=== PATIENT | male | born 1960 | race Caucasian/White ===

== ENCOUNTER 2018-11-16 14:35 | Emergency (ER) | payer OTHER, SELFPAY ==
[2018-11-16 14:44] VITALS: BP 125/70; PULSE 99; RESP 18; TEMP 37.5; O2SAT 97; BMI 34.7
--- NOTE | 2018-11-16 15:20 | DI.RAD.S_ITS ---
PROCEDURE: XR CHEST 2V INDICATIONS: cough x4 days hx of bronchitis. TECHNIQUE: 2 views of the chest were acquired. COMPARISON: None. FINDINGS: Surgical changes and devices: None. Lungs and pleura: No pleural effusions or pneumothorax. Lungs are clear. Mediastinum: Mediastinal contours are normal. Heart size is normal. Bones and chest wall: No suspicious bony abnormalities. Soft tissues appear unremarkable. IMPRESSION: No acute cardiopulmonary disease. Dictated by: Tiara Borrero M.D. on 11/16/2018 at 15:51 Approved by: Tiara Borrero M.D. on 11/16/2018 at 15:52
[2018-11-16] MEDS: predniSONE 20 MG TABLET 60 MG PO (16:55)
[2018-11-16] MEDS: ALBUTEROL 2.5 MG/3 ML NEB (ADULT) INH (16:56)
[2018-11-16 16:57] VITALS: PULSE 77; RESP 12; O2SAT 98
[2018-11-16 17:24] LABS: Influenza A and B by PCR Rapid Negative (Negative)
--- NOTE | 2018-11-16 17:26 | ED.URI ---
HPI - URI/Sore Throat <EREN BrowningBC - Last Filed: 11/16/18 18:11> General Chief Complaint: Upper Respiratory Symptoms Stated Complaint: BRONCHITIS Time Seen by Provider: 11/16/18 16:33 Source: patient Mode of arrival: ambulatory Limitations: no limitations History of Present Illness HPI Narrative: Patient is a 57-year-old male nonsmoker who presents with a chief complaint of cough since . Complains of fevers. Subjective fevers 101. Patient denies any nausea vomiting diarrhea. Patient denies any congestion. Patient and chest pain. He does complain of wheezing. Patient states that it started as a head cold and then move lower. He states he has albuterol and a preventative inhaler. He states he does not smoke, does not have a history of asthma COPD. He did used to see a fish frog or oyster farmer, but never had a pulm diagnosis. Related Data Home Medications Medication Instructions Recorded Confirmed aspirin 1 tab PO DAILY 11/16/18 11/16/18 empagliflozin [Jardiance] 1 tab PO DAILY 11/16/18 11/16/18 hydrochlorothiazide 1 tab PO DAILY 11/16/18 11/16/18 insulin aspart U-100 [Novolog 18 - 20 units SUBCUT BID 11/16/18 11/16/18 Flexpen U-100 Insulin] insulin glargine U-300 conc 80 units SUBCUT BID 11/16/18 11/16/18 [Toujeo SoloStar U-300 Insulin] loratadine 1 tab PO DAILY 11/16/18 11/16/18 simvastatin 1 tab PO DAILY 11/16/18 11/16/18 sitagliptin-metformin [Janumet XR] 2 tab PO QPM 11/16/18 11/16/18 Previous Rx's Medication Instructions Recorded benzonatate [Tessalon Perles] 100 mg PO QID PRN #30 cap 11/16/18 prednisone 50 mg PO DAILY #5 tab 11/16/18 Allergies Allergy/AdvReac Type Severity Reaction Status Date / Time No Known Drug Allergies Allergy Verified 11/16/18 14:47 Review of Systems <SILAS Browning - Last Filed: 11/16/18 18:11> Review of Systems GENERAL: Denies chills, fatigue, malaise, fever, sweats. HEENT: Denies sinus pain, ear pain, sore throat, difficulty swallowing, dizziness. RESPIRATORY: See HPI CARDIOVASCULAR: Denies chest pain, palpitations, orthopnea, edema, GASTROINTESTINAL: Denies nausea, vomiting, abdominal pain, diarrhea, constipation, melena. : Denies dysuria, frequency, incontinence, hematuria, urinary retention. MUSCULOSKELETAL: denies weakness, joint pain, or bony pain SKIN: Denies rash, skin lesions, or other NEUROLOGIC: Denies weakness, headache, numbness, change in speech, confusion, seizures, incoordination. PSYCHIATRIC: No concerning psychosocial issues. 12 point review of systems is negative except for those stated above Exam <ZENIA Browning-BC - Last Filed: 11/16/18 18:11> Narrative Exam Narrative: GENERAL: This is a well-nourished, well-developed patient, in no acute distress HEAD: Atraumatic. Normocephalic. No temporal or scalp tenderness. EYES: Pupils equal round and reactive. Extraocular motions intact. No scleral icterus. No injection or drainage. ENT: Nose without bleeding, purulent drainage or septal hematoma. Throat without erythema, tonsillar hypertrophy or exudate. Uvula midline. Airway patent. NECK: Trachea midline. No JVD or lymphadenopathy. Supple, nontender, no meningeal signs. CARDIOVASCULAR: Regular rate and rhythm without murmurs, gallops, or rubs. RESPIRATORY: Diffuse expiratory wheezes to auscultation. Breath sounds equal bilaterally. No rales, or rhonchi. No cough. No accessory muscle use. GASTROINTESTINAL: Abdomen soft, non-tender, nondistended. No hepato-splenomegaly, or palpable masses. No guarding. EXTREMITIES: No clubbing, cyanosis, or edema. No joint tenderness, effusion, or edema noted. BACK: Nontender without deformity or crepitance. No flank tenderness. NEURO: AOx3. SKIN: No rash or erythema. Initial Vital Signs Initial Vital Signs: Vital Signs Temperature 99.5 F 11/16/18 14:44 Pulse Rate 99 H 11/16/18 14:44 Respiratory Rate 18 11/16/18 14:44 Blood Pressure 125/70 11/16/18 14:44 Pulse Oximetry 97 11/16/18 14:44 <Martir Diaz DO - Last Filed: 11/16/18 18:59> Initial Vital Signs Initial Vital Signs: Vital Signs Temperature 99.5 F 11/16/18 14:44 Pulse Rate 99 H 11/16/18 14:44 Respiratory Rate 18 11/16/18 14:44 Blood Pressure 125/70 11/16/18 14:44 Pulse Oximetry 97 11/16/18 14:44 Course <BENITA BrowningP-BC - Last Filed: 11/16/18 18:11> Orders Ordered: ED Orders 11/16/18 15:20 Chest [XR chest 2V] Stat 11/16/18 16:55 Influenza A and B by PCR Rapid Stat Discontinued Medications Albuterol (Ventolin) 2.5 mg INH NOW ONE Stop: 11/16/18 16:47 Last Admin: 11/16/18 16:56 Dose: 2.5 mg Benzonatate (Tessalon Perles) 100 mg PO NOW ONE Stop: 11/16/18 17:51 Last Admin: 11/16/18 18:00 Dose: 100 mg Prednisone (Deltasone) 60 mg PO NOW ONE Stop: 11/16/18 16:47 Last Admin: 11/16/18 16:55 Dose: 60 mg Vital Signs - 8 hr 11/16/18 14:44 11/16/18 16:57 11/16/18 17:57 Temperature 99.5 F Pulse Rate 99 H 77 101 H Respiratory Rate 18 12 18 Blood Pressure 125/70 135/76 Pulse Oximetry 97 98 96 <Martir Diaz DO - Last Filed: 11/16/18 18:59> Orders Ordered: ED Orders 11/16/18 15:20 Chest [XR chest 2V] Stat 11/16/18 16:55 Influenza A and B by PCR Rapid Stat Discontinued Medications Albuterol (Ventolin) 2.5 mg INH NOW ONE Stop: 11/16/18 16:47 Last Admin: 11/16/18 16:56 Dose: 2.5 mg Benzonatate (Tessalon Perles) 100 mg PO NOW ONE Stop: 11/16/18 17:51 Last Admin: 11/16/18 18:00 Dose: 100 mg Prednisone (Deltasone) 60 mg PO NOW ONE Stop: 11/16/18 16:47 Last Admin: 11/16/18 16:55 Dose: 60 mg Vital Signs - 8 hr 11/16/18 14:44 11/16/18 16:57 11/16/18 17:57 Temperature 99.5 F Pulse Rate 99 H 77 101 H Respiratory Rate 18 12 18 Blood Pressure 125/70 135/76 Pulse Oximetry 97 98 96 MDM - URI/Sore Throat <EREN BrowningBC - Last Filed: 11/16/18 18:11> Lab Data Lab Results 11/16/18 Range/Units 16:55 Influenza A & B (PCR) Negative (Negative) Imaging Data Chest x-ray: Radiologist's impression: [address] [address] XRay Report Signed Patient: Chris Kaur MR#: [id number] : 1960 Acct:[id number] Age/Sex: 57 / M Date of Service: 11/16/18 Loc: ED Accession Number: [id number] Procedure: XR chest 2V Ordering Provider: Martir Diaz D.O. PROCEDURE: XR CHEST 2V INDICATIONS: cough x4 days hx of bronchitis. TECHNIQUE: 2 views of the chest were acquired. COMPARISON: None. FINDINGS: Surgical changes and devices: None. Lungs and pleura: No pleural effusions or pneumothorax. Lungs are clear. Mediastinum: Mediastinal contours are normal. Heart size is normal. Bones and chest wall: No suspicious bony abnormalities. Soft tissues appear unremarkable. IMPRESSION: No acute cardiopulmonary disease. Dictated by: Tiara Borrero M.D. on 11/16/2018 at 15:51 Approved by: Tiara Borrero M.D. on 11/16/2018 at 15:52 [facility] Narrative Medical decision making narrative: Patient is a 57-year-old male nonsmoker presents with a chief complaint of a cough. He had a negative chest x-ray, negative flu swab. He was given a nebulizer treatment the emergency department felt no relief from it. Given his wheezing, I am giving him a burst of steroids. I discussed at length with the patient that antibiotics are not indicated for a 4 day cough at this point time. We discussed a trial Juaquin Desai. I discussed return precautions the emergency department including shortness of breath, and encouraged follow-up with primary care provider. <Martir Diaz DO - Last Filed: 11/16/18 18:59> Lab Data Lab Results 11/16/18 Range/Units 16:55 Influenza A & B (PCR) Negative (Negative) Discharge Plan Departure Patient Disposition: Home Clinical Impression: Upper respiratory infection, Cough Discharge Date/Time: 11/16/18 18:05 Interventions: ED Discharge Assessment Last Done: 11/16/18 17:57 Instructions: DI for Cough -- Adult, DI for Viral Upper Respiratory Infection -- Adult Activity Restrictions/Additional Instructions: I have given you a burst of steroids as well as a trial of a cough medication. Please follow-up with primary care provider in a few days. Please monitor for high fevers, worsening shortness of breath or acute changes. Prescriptions: New prednisone 50 mg tablet 50 mg PO DAILY Qty: 5 RF: 0 benzonatate [Tessalon Perles] 100 mg capsule 100 mg PO QID PRN (Reason: cough) Qty: 30 RF: 0 No Action aspirin 81 mg tablet,delayed release (DR/EC) 1 tab PO DAILY RF: 0 simvastatin 40 mg tablet 1 tab PO DAILY RF: 0 hydrochlorothiazide 25 mg tablet 1 tab PO DAILY RF: 0 loratadine 10 mg tablet 1 tab PO DAILY RF: 0 insulin aspart U-100 [Novolog Flexpen U-100 Insulin] 100 unit/mL insulin pen 18 - 20 units subcut BID RF: 0 sitagliptin-metformin [Janumet XR] 50-1,000 mg tablet, ER multiphase 24 hr 2 tab PO QPM RF: 0 empagliflozin [Jardiance] 10 mg tablet 1 tab PO DAILY RF: 0 insulin glargine U-300 conc [Toujeo SoloStar U-300 Insulin] 300 unit/mL (1.5 mL) insulin pen 80 units subcut BID RF: 0 Referrals: Ngoc Silverman DO [Primary Care Provider] - <Martir Diaz DO - Last Filed: 11/16/18 18:59> Cosign ED Attending Andi Attestation: I was immediately available in the department for consultation. Documentation has been reviewed. I agree with assessment and plan.
--- NOTE | 2018-11-16 17:29 | ED_ITS ---
HPI - URI/Sore Throat <EREN BrowningBC - Last Filed: 11/16/18 18:11> General Chief Complaint: Upper Respiratory Symptoms Stated Complaint: BRONCHITIS Time Seen by Provider: 11/16/18 16:33 Source: patient Mode of arrival: ambulatory Limitations: no limitations History of Present Illness HPI Narrative: Patient is a 57-year-old male nonsmoker who presents with a chief complaint of cough since . Complains of fevers. Subjective fevers 101. Patient denies any nausea vomiting diarrhea. Patient denies any congestion. Patient and chest pain. He does complain of wheezing. Patient states that it started as a head cold and then move lower. He states he has albuterol and a preventative inhaler. He states he does not smoke, does not have a history of asthma COPD. He did used to see a product demonstrator, but never had a pulm diagnosis. Related Data Home Medications Medication Instructions Recorded Confirmed aspirin 1 tab PO DAILY 11/16/18 11/16/18 empagliflozin [Jardiance] 1 tab PO DAILY 11/16/18 11/16/18 hydrochlorothiazide 1 tab PO DAILY 11/16/18 11/16/18 insulin aspart U-100 [Novolog 18 - 20 units SUBCUT BID 11/16/18 11/16/18 Flexpen U-100 Insulin] insulin glargine U-300 conc 80 units SUBCUT BID 11/16/18 11/16/18 [Toujeo SoloStar U-300 Insulin] loratadine 1 tab PO DAILY 11/16/18 11/16/18 simvastatin 1 tab PO DAILY 11/16/18 11/16/18 sitagliptin-metformin [Janumet XR] 2 tab PO QPM 11/16/18 11/16/18 Previous Rx's Medication Instructions Recorded benzonatate [Tessalon Perles] 100 mg PO QID PRN #30 cap 11/16/18 prednisone 50 mg PO DAILY #5 tab 11/16/18 Allergies Allergy/AdvReac Type Severity Reaction Status Date / Time No Known Drug Allergies Allergy Verified 11/16/18 14:47 Review of Systems <SILAS Browning - Last Filed: 11/16/18 18:11> Review of Systems GENERAL: Denies chills, fatigue, malaise, fever, sweats. HEENT: Denies sinus pain, ear pain, sore throat, difficulty swallowing, dizziness. RESPIRATORY: See HPI CARDIOVASCULAR: Denies chest pain, palpitations, orthopnea, edema, GASTROINTESTINAL: Denies nausea, vomiting, abdominal pain, diarrhea, constipation, melena. : Denies dysuria, frequency, incontinence, hematuria, urinary retention. MUSCULOSKELETAL: denies weakness, joint pain, or bony pain SKIN: Denies rash, skin lesions, or other NEUROLOGIC: Denies weakness, headache, numbness, change in speech, confusion, seizures, incoordination. PSYCHIATRIC: No concerning psychosocial issues. 12 point review of systems is negative except for those stated above Exam <ZENIA Browning-BC - Last Filed: 11/16/18 18:11> Narrative Exam Narrative: GENERAL: This is a well-nourished, well-developed patient, in no acute distress HEAD: Atraumatic. Normocephalic. No temporal or scalp tenderness. EYES: Pupils equal round and reactive. Extraocular motions intact. No scleral icterus. No injection or drainage. ENT: Nose without bleeding, purulent drainage or septal hematoma. Throat without erythema, tonsillar hypertrophy or exudate. Uvula midline. Airway patent. NECK: Trachea midline. No JVD or lymphadenopathy. Supple, nontender, no meningeal signs. CARDIOVASCULAR: Regular rate and rhythm without murmurs, gallops, or rubs. RESPIRATORY: Diffuse expiratory wheezes to auscultation. Breath sounds equal bilaterally. No rales, or rhonchi. No cough. No accessory muscle use. GASTROINTESTINAL: Abdomen soft, non-tender, nondistended. No hepato-splenomegaly , or palpable masses. No guarding. EXTREMITIES: No clubbing, cyanosis, or edema. No joint tenderness, effusion, or edema noted. BACK: Nontender without deformity or crepitance. No flank tenderness. NEURO: AOx3. SKIN: No rash or erythema. Initial Vital Signs Initial Vital Signs: Vital Signs Temperature 99.5 F 11/16/18 14:44 Pulse Rate 99 H 11/16/18 14:44 Respiratory Rate 18 11/16/18 14:44 Blood Pressure 125/70 11/16/18 14:44 Pulse Oximetry 97 11/16/18 14:44 <Martir Diaz DO - Last Filed: 11/16/18 18:59> Initial Vital Signs Initial Vital Signs: Vital Signs Temperature 99.5 F 11/16/18 14:44 Pulse Rate 99 H 11/16/18 14:44 Respiratory Rate 18 11/16/18 14:44 Blood Pressure 125/70 11/16/18 14:44 Pulse Oximetry 97 11/16/18 14:44 Course <BENITA BrowningP-BC - Last Filed: 11/16/18 18:11> Orders Ordered: ED Orders 11/16/18 15:20 Chest [XR chest 2V] Stat 11/16/18 16:55 Influenza A and B by PCR Rapid Stat Discontinued Medications Albuterol (Ventolin) 2.5 mg INH NOW ONE Stop: 11/16/18 16:47 Last Admin: 11/16/18 16:56 Dose: 2.5 mg Benzonatate (Tessalon Perles) 100 mg PO NOW ONE Stop: 11/16/18 17:51 Last Admin: 11/16/18 18:00 Dose: 100 mg Prednisone (Deltasone) 60 mg PO NOW ONE Stop: 11/16/18 16:47 Last Admin: 11/16/18 16:55 Dose: 60 mg Vital Signs - 8 hr 11/16/18 14:44 11/16/18 16:57 11/16/18 17:57 Temperature 99.5 F Pulse Rate 99 H 77 101 H Respiratory Rate 18 12 18 Blood Pressure 125/70 135/76 Pulse Oximetry 97 98 96 <Martir Diaz DO - Last Filed: 11/16/18 18:59> Orders Ordered: ED Orders 11/16/18 15:20 Chest [XR chest 2V] Stat 11/16/18 16:55 Influenza A and B by PCR Rapid Stat Discontinued Medications Albuterol (Ventolin) 2.5 mg INH NOW ONE Stop: 11/16/18 16:47 Last Admin: 11/16/18 16:56 Dose: 2.5 mg Benzonatate (Tessalon Perles) 100 mg PO NOW ONE Stop: 11/16/18 17:51 Last Admin: 11/16/18 18:00 Dose: 100 mg Prednisone (Deltasone) 60 mg PO NOW ONE Stop: 11/16/18 16:47 Last Admin: 11/16/18 16:55 Dose: 60 mg Vital Signs - 8 hr 11/16/18 14:44 11/16/18 16:57 11/16/18 17:57 Temperature 99.5 F Pulse Rate 99 H 77 101 H Respiratory Rate 18 12 18 Blood Pressure 125/70 135/76 Pulse Oximetry 97 98 96 MDM - URI/Sore Throat <EREN BrowningBC - Last Filed: 11/16/18 18:11> Lab Data Lab Results 11/16/18 Range/Units 16:55 Influenza A & B (PCR) Negative (Negative) Imaging Data Chest x-ray: Radiologist's impression: [address] [address] XRay Report Signed Patient: Chris Kaur MR#: [id number] : 1960 Acct:[id number] Age/Sex: 57 / M Date of Service: 11/16/18 Loc: ED Accession Number: [id number] Procedure: XR chest 2V Ordering Provider: Martir Diaz D.O. PROCEDURE: XR CHEST 2V INDICATIONS: cough x4 days hx of bronchitis. TECHNIQUE: 2 views of the chest were acquired. COMPARISON: None. FINDINGS: Surgical changes and devices: None. Lungs and pleura: No pleural effusions or pneumothorax. Lungs are clear. Mediastinum: Mediastinal contours are normal. Heart size is normal. Bones and chest wall: No suspicious bony abnormalities. Soft tissues appear unremarkable. IMPRESSION: No acute cardiopulmonary disease. Dictated by: Tiara Borrero M.D. on 11/16/2018 at 15:51 Approved by: Tiara Borrero M.D. on 11/16/2018 at 15:52 [facility] Narrative Medical decision making narrative: Patient is a 57-year-old male nonsmoker presents with a chief complaint of a cough. He had a negative chest x-ray, negative flu swab. He was given a nebulizer treatment the emergency department felt no relief from it. Given his wheezing, I am giving him a burst of steroids. I discussed at length with the patient that antibiotics are not indicated for a 4 day cough at this point time. We discussed a trial Juaquin Desai. I discussed return precautions the emergency department including shortness of breath, and encouraged follow-up with primary care provider. <Martir Diaz DO - Last Filed: 11/16/18 18:59> Lab Data Lab Results 11/16/18 Range/Units 16:55 Influenza A & B (PCR) Negative (Negative) Discharge Plan Departure Patient Disposition: Home Clinical Impression: Upper respiratory infection, Cough Discharge Date/Time: 11/16/18 18:05 Interventions: ED Discharge Assessment Last Done: 11/16/18 17:57 Instructions: DI for Cough -- Adult, DI for Viral Upper Respiratory Infection - - Adult Activity Restrictions/Additional Instructions: I have given you a burst of steroids as well as a trial of a cough medication. Please follow-up with primary care provider in a few days. Please monitor for high fevers, worsening shortness of breath or acute changes. Prescriptions: New prednisone 50 mg tablet 50 mg PO DAILY Qty: 5 RF: 0 benzonatate [Tessalon Perles] 100 mg capsule 100 mg PO QID PRN (Reason: cough) Qty: 30 RF: 0 No Action aspirin 81 mg tablet,delayed release (DR/EC) 1 tab PO DAILY RF: 0 simvastatin 40 mg tablet 1 tab PO DAILY RF: 0 hydrochlorothiazide 25 mg tablet 1 tab PO DAILY RF: 0 loratadine 10 mg tablet 1 tab PO DAILY RF: 0 insulin aspart U-100 [Novolog Flexpen U-100 Insulin] 100 unit/mL insulin pen 18 - 20 units subcut BID RF: 0 sitagliptin-metformin [Janumet XR] 50-1,000 mg tablet, ER multiphase 24 hr 2 tab PO QPM RF: 0 empagliflozin [Jardiance] 10 mg tablet 1 tab PO DAILY RF: 0 insulin glargine U-300 conc [Toujeo SoloStar U-300 Insulin] 300 unit/mL (1.5 mL) insulin pen 80 units subcut BID RF: 0 Referrals: Ngoc Silverman DO [Primary Care Provider] - <Martir Diaz DO - Last Filed: 11/16/18 18:59> Cosign ED Attending Andi Attestation: I was immediately available in the department for consultation. Documentation has been reviewed. I agree with assessment and plan.
[2018-11-16 17:57] VITALS: BP 135/76; PULSE 101; RESP 18; O2SAT 96
[2018-11-16] MEDS: BENZONATATE 100 MG CAPSULE PO (18:00)
== END 2018-11-16 18:05 | disposition home or self-care (01) ==
PROVIDERS: Emergency Provider Nurse Practitioner Family; PCP Family Medicine
DX: J06.9 Acute upper respiratory infection, unspecified (principal); R05 Cough
CPT/HCPCS: 71046; 87400; 94640; 99282; 99284; J7613

== ENCOUNTER → 2020-05-26 07:08 | Outpatient (CLI) | payer OTHER, SELFPAY ==
--- NOTE | 2020-05-26 | DI.MRI.S_ITS ---
PROCEDURE: MR HEAD/BRAIN WO CON INDICATIONS: Cough,Chronic sphenoidal sinusitis TECHNIQUE: Noncontrast axial T1 spin echo, axial T2 fast spin echo, sagittal and axial FLAIR, coronal T2 fast spin echo, axial gradient echo, axial diffusion and ADC through the brain. COMPARISON: None. FINDINGS: Image quality: Excellent. CSF Spaces: Basal cisterns are patent. No extra-axial fluid collections. Ventricles are normal in size and shape. Brain: No intracranial masses or hemorrhage. Mata/white matter interface is normal. Brainstem appears normal. Diffusion-weighted images demonstrate no acute ischemic insult. No chronic ischemic insults. Normal intravascular flow voids are present. Skull and face: Calvarium has normal marrow signal. Orbits appear normal. Sinuses: Mild mucosal thickening within the left sphenoid sinus. Sinuses and mastoids are otherwise clear. IMPRESSION: 1. Negative evaluation of the brain. 2. No recent infarct. 3. Mild left sphenoid sinus mucosal disease. Dictated by: Rosi Andrews M.D. on 05/26/2020 at 9:21 Approved by: Rosi Andrews M.D. on 05/26/2020 at 9:25
== END ==
PROVIDERS: PCP Family Medicine; Referring Provider Otolaryngology; Visit Provider Otolaryngology
DX: R05 Cough (principal); J32.3 Chronic sphenoidal sinusitis
CPT/HCPCS: 70551

== ENCOUNTER → 2021-09-28 07:58 | Outpatient (CLI) | payer OTHER, SELFPAY ==
--- NOTE | 2021-09-28 | DI.NM.S_ITS ---
PROCEDURE: NM LUIS PERF SPECT REST & STR Rest and exercise myocardial perfusion SPECT with gated imaging and ejection fraction RADIOPHARMACEUTICAL: 23.1 mCi Tc-99m sestamibi IV at rest and 26.7 mCi Tc-99m sestamibi IV at peak exercise. A [id number] was performed. INDICATIONS: Shortness of breath TECHNIQUE: Radiopharmaceutical was injected at peak stress test, and also at rest. SPECT images were obtained. SPECT myocardial perfusion images were displayed in short axis, horizontal long axis, and vertical long axis views. Gated images were reviewed using Eosc[employer] software. COMPARISON: None. CARDIAC STRESS: A standard Shad treadmill exercise tolerance test was performed by the patient under the supervision of an attending staff. The patient exercised for 4 minutes and 22 seconds; 7.0 METS; functional aerobic impairment (SHERON) is +47%. Hemodynamic data: There is normal blood pressure and heart rate response to exercise stress. Patient achieved 92% of maximum predicted heart rate at peak exercise. Maximum blood pressure 270/80. Symptoms: Patient denied chest pain during exercise. EKG: The ECG demonstrated [address] segment depressions leads V4 through V6 in early recovery. FINDINGS: Raw data: There is good myocardial labeling by radiotracer. No significant motion artifacts. Fvmx-ev-wiqga ratio is 0.38 (normal is less than 0.38 for sestamibi tracer, and less than 0.50 for thallium tracer). Left ventricle function: Gated images demonstrate normal left ventricle wall thickening. No segmental wall motion abnormality. No transient ischemic dilation; TID is 0.91 (normal less than 1.3). The left ventricle resting end-diastolic volume is 123 mL. Left ventricle stress ejection fraction is 76%; normal values are above 45%. Myocardial perfusion: There is a small size, mild intensity mid anterior wall reversible defect that resolves with prone imaging. There is also a medium size, mild to moderate intensity reversible basal inferior wall defect that also resolves with prone imaging. IMPRESSION: 1. No definite exercise-induced ischemia on perfusion imaging as two reversible defects seen on supine stress imaging resolve with delayed prone imaging. 2. Abnormal stress ECG with ST segment depressions leads V4 through V6 noted in recovery. 3. Limited exercise capacity. 4. Hypertensive response to exercise. Dictated by: Hyacinth Cornell D.O. on 09/29/2021 at 15:42 Approved by: Hyacinth Cornell M.D. on 09/29/2021 at 15:48
--- NOTE | 2021-09-28 | DI.ECHO.S_ITS ---
[facility] +---------+ : : [address] : [address] : : : : [address] : : : : Phone: [phone]+ Echocardiogram Report + + :Name: BURTON MACKEY Study Date: 09/28/2021 Height: 74 in : :[facility] ReadingLocation: Weight: 290 lb : : Gender: Male BSA: 2.5 m2 : :: 1960 Age: 60 yrs BP: 167/78 mmHg: :Reason For Study: SHORTNESS OF BREATH : :Ordering Physician: LORRIE, : :DESIRAE Performed By: Mouna Santana : :Referring: DESIRAE ANDREW : + + Interpretation Summary Normal-sized left ventricle. The ejection fraction is estimated to be 65-70%. There are no focal wall motion abnormalities. Diastolic parameters suggest probable normal left ventricular diastolic function and normal filling pressures. The right ventricle is mildly dilated. The right ventricular systolic function is normal. No significant valvular pathology seen. The IVC is of normal diameter and collapses greater than 50% with a sniff. This suggests a low right atrial pressure of 3 mm Hg. Procedure: A two-dimensional transthoracic echocardiogram with color flow and Doppler was performed. The study quality was technically difficult. A contrast injection of Definity was performed to improve assessment of LV function. There is no prior echocardiogram noted for this patient. The patient was in sinus rhythm with heart rates between 77-91 bpm during the exam. Left Ventricle: The left ventricle is normal in size. Proximal septal thickening is noted. There is no echo evidence for significant left ventricular outflow tract obstruction. There is no thrombus. The ejection fraction is estimated to be 65-70%. There are no focal wall motion abnormalities. Diastolic parameters suggest probable normal left ventricular diastolic function and normal filling pressures. Right Ventricle: The right ventricle is mildly dilated. The right ventricular systolic function is normal. Atria: The left atrial size is normal. Right atrial size is normal. There is no Doppler evidence for an interatrial shunt. Mitral Valve: The mitral valve is normal in structure and function. There is trace mitral regurgitation. Aortic Valve: The aortic valve is trileaflet. The aortic valve opens well. There is no aortic valve stenosis. No aortic regurgitation is present. Tricuspid Valve: The tricuspid valve is normal in structure and function. There is trace tricuspid regurgitation. Pulmonary artery pressures cannot be estimated because of the lack of a measurable TR jet velocity. Pulmonic Valve: The pulmonic valve is not well visualized. There is trace pulmonic regurgitation. Great Vessels: The aortic root is normal size. The dimensions of the ascending aorta are normal. The IVC is of normal diameter and collapses greater than 50% with a sniff. This suggests a low right atrial pressure of 3 mm Hg. Pericardium/ Pleura There is no pericardial effusion. There is an anterior echo-free space consistent with a fat pad. There is no pleural effusion. MMode/2D Measurements & Calculations LVIDd: 4.0 cm LVOT diam: 2.1 cm LVIDs: 2.5 cm Ao root diam: 3.3 cm FS: 37.6 % asc Aorta Diam: 3.0 cm IVSd: 1.2 cm Ao Arch Diam (Prox Trans): 3.0 cm LVPWd: 0.88 cm LV anders. diameter/BSA (cm/m^2): 1.6 LV sys. diameter/BSA (cm/m^2): 0.98 LA A2 area: 22.2 cm2 RA long axis: 5.0 cm LA A4 area: 25.2 cm2 RA area: 18.4 cm2 LA length (vol): 6.0 cm RA vol: 57.5 ml LA vol: 78.9 ml RA : 22.6 ml/m2 LA vol index: 31.0 ml/m2 IVC diam: 2.0 cm RVD1 (basal): 4.3 cm TAPSE: 2.6 cm Doppler Measurements & Calculations Ao V2 max: 144.9 cm/sec LVOT Max Peterson: 114.6 cm/sec Ao V2 mean: 99.8 cm/sec LV V1 max P.3 mmHg Ao max P.4 mmHg LV V1 VTI: 21.7 cm Ao mean P.5 mmHg JORGE(I,D): 2.8 cm2 Ao V2 VTI: 27.6 cm JORGE(V,D): 2.8 cm2 sev ratio: 0.79 JORGE indexed to BSA (cm^2/m^2): 1.1 MV E max peterson: 108.5 cm/sec PA V2 max: 152.5 cm/sec MV A max peterson: 71.1 cm/sec PA V2 mean: 116.1 cm/sec MV E/A: 1.5 PA mean P.8 mmHg Med Peak E' Peterson: 12.5 cm/sec PA pr(Accel): 32.8 mmHg E/E' med: 8.6 Lat Peak E' Peterson: 10.9 cm/sec E/E' lat: 9.9 E/e' average: 9.3 MV dec time: 0.23 sec SV([facility]): 76.7 ml Reading Physician:03:33 PM
[2021-09-28 10:58] LABS: COVID19 -Nasal RAPID Negative (Negative)
== END ==
PROVIDERS: PCP Family Medicine; Referring Provider Internal Medicine Cardiovascular Disease; Visit Provider Internal Medicine Cardiovascular Disease
DX: R06.02 Shortness of breath (principal); R94.39 Abnormal result of other cardiovascular function study; Z20.822 Contact with and (suspected) exposure to COVID-19
CPT/HCPCS: 78452; 87635; 93017; A9502; C8929; Q9957

== ENCOUNTER 2022-08-31 21:57 | Emergency (ER) | payer OTHER, SELFPAY ==
[2022-08-31 22:12] VITALS: BP 139/64; PULSE 97; RESP 18; TEMP 36.7; O2SAT 97; BMI 37.2
--- NOTE | 2022-08-31 22:16 | DI.RAD.S_ITS ---
PROCEDURE: XR CHEST 2V INDICATIONS: think broken right lower rib from coughing TECHNIQUE: 2 views of the chest were acquired. COMPARISON: , CR, XR CHEST 2V, 11/16/2018, 15:23. FINDINGS: Surgical changes and devices: None. Lungs and pleura: There are low lung volumes with vascular crowding. There is suggestion of a small right pleural effusion. Mediastinum: Mediastinal contours are normal. Heart size is normal. Bones and chest wall: No suspicious bony abnormalities. Soft tissues appear unremarkable. IMPRESSION: 1. Low lung volumes with vascular crowding. 2. Suggestion of a small right pleural effusion. Dictated by: Sloan Dumont M.D. on 09/01/2022 at 0:10 Approved by: Sloan Dumont M.D. on 09/01/2022 at 0:12
--- NOTE | 2022-08-31 22:32 | ED_ITS ---
HPI - General Adult General Chief complaint: Abdominal Pain Stated complaint: Head cold, Broke rib coughing Time Seen by Provider: 08/31/22 22:31 Source: patient Mode of arrival: Ambulatory History of Present Illness HPI narrative: 61M nonsmoker with history of hypertension and recent diagnosis of upper respiratory infection is being treated by his primary care provider with antibiotics and largely feeling much better presents with a chief complaint of a sudden onset right-sided rib pain that started when he was coughing. He states that he felt a pop and now has pain when he takes a deep breath. He denies fever or chills. He states that overall his symptoms have greatly improved. He denies any shortness of breath. He is had no nausea, vomiting or diarrhea. He is not dizzy nor weak or lightheaded. Related Data Home Medications Medication Instructions Recorded Confirmed aspirin 81 mg tablet,delayed 1 tab PO DAILY 11/16/18 11/16/18 release empagliflozin 10 mg tablet 1 tab PO DAILY 11/16/18 11/16/18 hydrochlorothiazide 25 mg tablet 1 tab PO DAILY 11/16/18 11/16/18 insulin aspart U-100 100 unit/mL 18 - 20 units SUBCUT BID 11/16/18 11/16/18 (3 mL) subcutaneous pen insulin glargine U-300 conc 300 80 units SUBCUT BID 11/16/18 11/16/18 unit/mL (1.5 mL) subcutaneous pen loratadine 10 mg tablet 1 tab PO DAILY 11/16/18 11/16/18 simvastatin 40 mg tablet 1 tab PO DAILY 11/16/18 11/16/18 sitagliptin 50 mg-metformin ER 2 tab PO QPM 11/16/18 11/16/18 1,000 mg tablet,extended release 24h mp Previous Rx's Medication Instructions Recorded benzonatate 100 mg capsule 100 mg PO QID PRN cough #30 caps 11/16/18 (Juaquin Desai) prednisone 50 mg tablet 50 mg PO DAILY #5 tabs 11/16/18 Allergies Allergy/AdvReac Type Severity Reaction Status Date / Time No Known Drug Allergies Allergy Verified 08/31/22 22:16 Review of Systems Review of Systems Narrative: GENERAL: Denies chills, fatigue, malaise, fever, sweats. HEENT: Denies sinus pain, ear pain, sore throat, difficulty swallowing, dizziness. RESPIRATORY: Denies dyspnea, cough, wheezing, hemoptysis, sputum. CARDIOVASCULAR: See HPI GASTROINTESTINAL: Denies nausea, vomiting, abdominal pain, diarrhea, constipation, melena. : Denies dysuria, frequency, incontinence, hematuria, urinary retention. MUSCULOSKELETAL: denies weakness, joint pain, or bony pain SKIN: Denies rash, skin lesions, or other NEUROLOGIC: Denies weakness, headache, numbness, change in speech, confusion, seizures, incoordination. PSYCHIATRIC: No concerning psychosocial issues. 12 point review of systems is negative except for those stated above Patient History Social History Smoking Status: Never smoker Smoking Status: Never smoker alcohol intake frequency: 0-2 drinks per day Substance Use Type: does not use Exam Narrative Exam Narrative: GENERAL: [61] year old patient appears stated age. Well-developed patient, in mild distress. No increased work of breathing, no hypoxemia HEAD: Atraumatic. Normocephalic. EYES: Pupils equal round and reactive. Extraocular motions intact. No scleral icterus. No injection or drainage. ENT: Nose without bleeding, purulent drainage. Throat without erythema, tonsillar hypertrophy or exudate. Airway patent. NECK: Trachea midline. Non tender CARDIOVASCULAR: Regular rate and rhythm without murmurs, gallops, or rubs. No pain on palpation of ribs RESPIRATORY: Deep breath illicits cough which is clearly painful, decreased breath sounds in right base. No wheezing, rales or rhonchi GASTROINTESTINAL: Abdomen soft, non-tender, nondistended. EXTREMITIES: No edema or joint tenderness. BACK: Nontender without deformity or crepitance. No flank tenderness. NEURO: AOx3. SKIN: No rash or erythema of visible areas Initial Vital Signs Initial Vital Signs: Vital Signs Temperature 98.1 F 08/31/22 22:12 Pulse Rate 97 H 08/31/22 22:12 Respiratory Rate 18 08/31/22 22:12 Blood Pressure 139/64 08/31/22 22:12 Pulse Oximetry 97 08/31/22 22:12 Oxygen Delivery Method 08/31/22 22:12 Course Orders Ordered: ED Orders 08/31/22 22:16 XR chest 2V Stat Vital Signs Vital signs: Vital Signs - 8 hr 08/31/22 22:12 Temperature 98.1 F Pulse Rate 97 H Respiratory Rate 18 Blood Pressure 139/64 Pulse Oximetry 97 Oxygen Delivery Method Room Air Medical Decision Making Imaging Data Chest x-ray: Radiologist's Impression: [address] [address] XRay Report Signed Patient: Chris Kaur MR#: [id number] : 1960 Acct:[id number] Age/Sex: 61 / M Date of Service: 08/31/22 Loc: ED Accession Number: [id number] ?? Procedure: XR chest 2V Ordering Provider: Martir Diaz D.O. PROCEDURE:? XR CHEST 2V ? INDICATIONS:? think broken right lower rib from coughing ? TECHNIQUE:? 2 views of the chest were acquired.? ? COMPARISON:? [facility], CR, XR CHEST 2V, 11/16/2018, 15:23. ? FINDINGS:? ? Surgical changes and devices:? None.? ? Lungs and pleura:? There are low lung volumes with vascular crowding.? There is suggestion of a small right pleural effusion.? ? Mediastinum:? Mediastinal contours are normal.? Heart size is normal.? ? Bones and chest wall:? No suspicious bony abnormalities.? Soft tissues appear unremarkable.? ? IMPRESSION:? ? 1. Low lung volumes with vascular crowding. ? 2. Suggestion of a small right pleural effusion.? ? ? Dictated by: Sloan Dumont M.D. on 09/01/2022 at 0:10 ? ? Approved by: Sloan Dumont M.D. on 09/01/2022 at 0:12 ? MDM Narrative Medical decision making narrative: Patient with very reassuring history and physical exam. He is in no respiratory distress with stable vitals. Chest x-ray shows small pleural effusion but no evidence of pneumonia or rib fracture. We did discuss this is the likely source of his discomfort. He already has a follow-up appointment scheduled for Saturday. He understands the need to keep this appointment in the importance of following this effusion to ensure it clears up. He has been given return precautions and has had questions answered to his apparent satisfaction Discharge Plan Departure Patient Disposition: Home Clinical Impression: Right-sided chest pain, Pleural effusion Instructions: DI for Atypical Chest Pain Activity Restrictions/Additional Instructions: *You have been diagnosed with [right-sided chest pain. Your history and physical exam are reassuring and chest x-ray shows no rib fracture, pneumonia or collapsed lung. As we discussed there is a small amount of fluid outside of your lung called a pleural effusion but there is no need for any specific intervention for this right now.] *What to do: *Please continue to take your regular medications as directed. *Please follow up with your primary care provider next week as planned. As we discussed, even though your appointment as already scheduled please let them know ahead of time that you were seen in the emergency department, we will electronically transmitted a copy of today's note *Return to Emergency Department if you should have any new, worsening or concerning symptoms, such as [fever greater than 101 F, shaking chills, worsening pain, persistent vomiting or other bothersome symptoms] Prescriptions: No Action prednisone 50 mg tablet 50 mg PO DAILY Qty: 5 0RF benzonatate [Tessalon Perles] 100 mg capsule 100 mg PO QID PRN (Reason: cough) Qty: 30 0RF aspirin 81 mg tablet,delayed release (DR/EC) 1 tab PO DAILY simvastatin 40 mg tablet 1 tab PO DAILY hydrochlorothiazide 25 mg tablet 1 tab PO DAILY loratadine 10 mg tablet 1 tab PO DAILY insulin aspart U-100 [Novolog Flexpen U-100 Insulin] 100 unit/mL insulin pen 18 - 20 units subcut BID sitagliptin-metformin [Janumet XR] 50-1,000 mg tablet, ER multiphase 24 hr 2 tab PO QPM empagliflozin [Jardiance] 10 mg tablet 1 tab PO DAILY insulin glargine U-300 conc [Toujeo SoloStar U-300 Insulin] 300 unit/mL (1.5 mL) insulin pen 80 units subcut BID Referrals: Ngoc Silverman DO [Primary Care Provider] -
[2022-09-01 00:25] VITALS: BP 137/90; PULSE 94; O2SAT 97
== END 2022-09-01 00:42 | disposition home or self-care (01) ==
PROVIDERS: Emergency Provider Emergency Medicine; PCP Family Medicine
DX: R07.9 Chest pain, unspecified (principal); J90 Pleural effusion, not elsewhere classified
CPT/HCPCS: 71046; 99281; 99283

== ENCOUNTER → 2022-09-06 16:52 | Outpatient (CLI) | payer OTHER, SELFPAY ==
--- NOTE | 2022-09-06 16:56 | DI.MRI.S_ITS ---
PROCEDURE: MR FOOT LT WO/W CON INDICATIONS: PAIN TO LT. TOE TECHNIQUE: Noncontrast coronal T1 spin echo and STIR, sagittal T1 spin echo with fat saturation and STIR, axial T1 spin echo and T2 fast spin echo with fat saturation. After the administration of contrast, axial/sagittal/coronal T1 spin echo with fat saturation through the left midfoot and forefoot. COMPARISON: None. FINDINGS: Image quality: Excellent. Bones: There is marrow edema involving base and shaft of 1st metatarsal bone. Marrow edema involving 2nd metatarsal base and shaft is also seen. There is also marrow edema in adjacent medial cuneiform and middle cuneiform. Cortical irregularity along articular surfaces of 1st metatarsal base and adjacent medial cuneiform is also seen. Dorsal subluxation at 2nd MTP joint is noted. No discrete fracture line is seen. Marrow edema is also noted involving 2nd proximal phalanx without discrete fracture line. No gross bony erosive changes are seen in 2nd metatarsal shaft or 2nd proximal phalanx. Osteoarthritic changes are noted throughout midfoot and forefoot. No other area of abnormal marrow signal is seen. After IV contrast infusion, abnormal enhancement within above-mentioned area of marrow edema is noted. Soft tissues: There is significant soft tissue edema and swelling over dorsum of midfoot and forefoot. No definite ulceration is seen. No discrete drainable fluid collection. There is edema involving plantar foot muscles without discrete intramuscular fluid collection. Heterogeneous contrast enhancement at the area of soft tissue swelling is seen. Forefoot tendons show no full-thickness rupture. IMPRESSION: 1. Marked soft tissue swelling over dorsum of midfoot and forefoot suggestive of cellulitis. No discrete drainable abscess collection. 2. Marrow edema involving 1st and 2nd metatarsal shafts and adjacent medial and middle cuneiform with bony erosive changes involving 1st TMT joint. Marrow edema also noted involving 2nd proximal phalangeal shaft with dorsal subluxation/dislocation at 2nd MTP joint. No definite fracture line is seen. Finding is concerning for osteomyelitis and septic arthritis. Insufficiency fracture cannot be entirely excluded. Clinical correlation and follow-up is recommended. 3. No other area of marrow edema or abnormal enhancement. Osteoarthritic changes throughout midfoot and forefoot. Dictated by: Caden Newell M.D. on 09/07/2022 at 9:18 Approved by: Caden Newell M.D. on 09/07/2022 at 9:40
== END ==
PROVIDERS: PCP Family Medicine; Referring Provider Family Medicine; Visit Provider Family Medicine
DX: R93.89 Abnormal findings on diagnostic imaging of other specified body structures (principal); M79.675 Pain in left toe(s); M79.89 Other specified soft tissue disorders
CPT/HCPCS: 73720; A9579

== ENCOUNTER 2022-09-10 10:18 | Inpatient (IN) | payer OTHER, SELFPAY ==
[2022-09-10] VITALS (9 sets, daily range): BP systolic 120–160; BP diastolic 60–89; PULSE 75–97; RESP 16–20; TEMP 36.6–36.8; O2SAT 96–99; BMI 36.6
[2022-09-10 11:04] LABS: Add Manual Diff / Slide Review NO; Basophils Absolute Auto 100 /uL (0-100); Eosinophils Absolute Auto 700 /uL (0-450); Eosinophils Percent Auto 4.7 % (2-4); Hematocrit 45.7 % (41-53); Hemoglobin 15.4 g/dL (13.5-17.5); Lymphocytes Absolute Auto 2200 /uL (1100-4500); Lymphocytes Percent Auto 15.5 % (25-40); Mean Corpuscular HGB Conc 33.6 % (30-36); Mean Corpuscular Hemoglobin 29.7 PG (26-34); Mean Corpuscular Volume 88.4 fL (80-100); Monocytes Absolute Auto 1100 /uL (0-900); Monocytes Percent Auto 7.7 % (3-14); Neutrophils Absolute Auto 10300 /uL (1500-7000); Neutrophils Percent Auto 71.1 % (50-75); Platelet Count 326 X10^3/uL (150-400); Red Blood Cell Count 5.17 X10^6/uL (4.5-5.9); Red Cell Distribution Width 15.1 % (11.6-14.8); White Blood Cell Count 14.5 X10^3/uL (4.5-11.0)
[2022-09-10 11:25] LABS: Alanine Aminotransferase 56 IU/L (<50); Albumin 4.1 g/dL (3.5-5.0); Albumin Globulin Ratio 1.3 (1.0-2.8); Alkaline Phosphatase 74 U/L (38-126); Aspartate Aminotransferase 37 IU/L (17-59); BUN Creatinine Ratio 22.3 (6-22); Bilirubin Total 0.5 mg/dL (0.2-1.3); Blood Urea Nitrogen 23 mg/dL (9-20); C-Reactive Protein Quant 1.3 mg/dL (<1.0); Calcium 9.3 mg/dL (8.4-10.2); Carbon Dioxide 28 mmol/L (22-32); Chloride 95 mmol/L (98-107); Estimated Glomerular Filt Rate > 60 mL/min (>60); Globulin 3.2 g/dL (1.7-4.1); Glucose 215 mg/dL (70-100); HEMOLYSIS 22 (0-50); Potassium 4.2 mmol/L (3.4-5.1); Sodium 134 mmol/L (137-145); Total Protein 7.3 g/dL (6.3-8.2)
[2022-09-10 11:30] LABS: Erythrocyte Sedimentation Rate 34 MM/HR (0-15)
--- NOTE | 2022-09-10 11:39 | PC.NURSE ---
second set of blood cx drawn by phlebotomy/lab at 1133
[2022-09-10] MEDS: VANCOMYCIN 2,000 MG/400 ML PIGGYBACK 200 MG IV (11:40)
--- NOTE | 2022-09-10 12:28 | ED_ITS ---
HPI - Extremity Problem <Bettina Harp, [facility] - Last Filed: 09/10/22 14:55> General Chief complaint: Extremity Problem,Nontraumatic Stated complaint: seent by SAMSON LEVY infection lt foot big toe Time Seen by Provider: 09/10/22 10:38 History of Present Illness HPI Narrative: This is a 61-year-old gentleman with history of diabetes, hypertension, PETERSON on CPAP who presents to the emergency department after his primary care appointment with Maria Del Carmen palacio who sent patient in for concern for osteomyelitis of his left foot. Patient reports that he has been on oral antibiotics for the last 3 weeks, states he was on Augmentin starting 3 weeks ago and 12 days ago started on doxycycline as well. He states that he has mild sensation to pressure in the dorsum and plantar aspect of his foot and has not complained of any pain, states that he noticed his left 1st and 2nd toes were swollen and appeared to be bent at the tip and he had an x-ray completed as an outpatient ordered by his primary care provider and then later had a left foot MRI. This was completed the [facility]. On chart review his MRI shows marked soft tissue swelling over the dorsum of the midfoot and forefoot suggestive of cellulitis, no discrete drainable abscess collection, marrow edema involving the 1st and 2nd metatarsal shafts and adjacent medial and middle cuneiform with bony erosive changes involving the 1st TM T joint. Marrow edema also noted involving 2nd proximal phalangeal shaft with dorsal subluxation/dislocation at the 2nd MTP joint. No definite fracture line is seen. Finding is concerning for osteomyelitis and septic arthritis. No other area marrow edema or abnormal enhancement was visualized on MRI, osteoarthritic changes throughout midfoot and forefoot. Patient states that he has been fatigued, feeling tired the last few days, denies any pain of his lower extremity. Related Data Home Medications Medication Instructions Recorded Confirmed hydrochlorothiazide 25 mg tablet 1 tab PO DAILY 11/16/18 09/10/22 insulin aspart U-100 100 unit/mL 26 units SUBCUT BID 11/16/18 09/10/22 (3 mL) subcutaneous pen insulin glargine U-300 conc 300 80 units SUBCUT BID 11/16/18 09/10/22 unit/mL (1.5 mL) subcutaneous pen loratadine 10 mg tablet 1 tab PO DAILY 11/16/18 09/10/22 sitagliptin 50 mg-metformin ER 1 tab PO QPM 11/16/18 09/10/22 1,000 mg tablet,extended release 24h mp albuterol sulfate 90 mcg/actuation 1 inh inhalation BID 09/10/22 09/10/22 aerosol inhaler (ProAir HFA) amoxicillin 500 mg-potassium 1 tab PO BID 09/10/22 09/10/22 clavulanate 125 mg tablet atorvastatin 40 mg tablet 40 mg PO DAILY 09/10/22 09/10/22 codeine 10 mg-guaifenesin 100 mg/5 5 ml PO BEDTIME PRN Cough 09/10/22 09/10/22 mL oral liquid doxycycline hyclate 100 mg tablet 100 mg PO BID 09/10/22 09/10/22 fluticasone 500 mcg-salmeterol 50 1 ea inhalation BID 09/10/22 09/10/22 mcg/dose blistr powdr for inhalation (Advair Diskus) fluticasone propionate 50 1 spray intranasal BID 09/10/22 09/10/22 mcg/actuation nasal spray,suspension furosemide 20 mg tablet 20 mg PO DAILY 09/10/22 09/10/22 hydrocodone 5 mg-acetaminophen 325 1 tab PO BEDTIME PRN Pain (Scale 09/10/22 09/10/22 mg tablet Score 4-6) omeprazole 20 mg capsule,delayed 20 mg PO BID 09/10/22 09/10/22 release Previous Rx's Medication Instructions Recorded benzonatate 100 mg capsule 100 mg PO QID PRN cough #30 caps 11/16/18 (Juaquin Desai) Allergies Allergy/AdvReac Type Severity Reaction Status Date / Time No Known Drug Allergies Allergy Verified 09/10/22 10:35 <Payton Killian, - Last Filed: 09/10/22 19:28> History of Present Illness HPI Narrative: This is a 61-year-old gentleman with history of diabetes, hypertension, PETERSON on CPAP who presents to the emergency department after his primary care appointment with Maria Del Carmen palacio who sent patient in for concern for osteomyelitis of his left foot. Patient reports that he has been on oral antibiotics for the last 3 weeks, states he was on Augmentin starting 3 weeks ago and 12 days ago started on doxycycline as well. He states that he has mild sensation to pressure in the dorsum and plantar aspect of his foot and has not complained of any pain, states that he noticed his left 1st and 2nd toes were swollen and appeared to be bent at the tip and he had an x-ray completed as an outpatient ordered by his primary care provider and then later had a left foot MRI. This was completed the [facility]. On chart review his MRI shows marked soft tissue swelling over the dorsum of the midfoot and forefoot suggestive of cellulitis, no discrete drainable abscess collection, marrow edema involving the 1st and 2nd metatarsal shafts and adjacent medial and middle cuneiform with bony erosive changes involving the 1st TM T joint. Marrow edema also noted involving 2nd proximal phalangeal shaft with dorsal subluxation/dislocation at the 2nd MTP joint. No definite fracture line is seen. Finding is concerning for osteomyelitis and septic arthritis. No other area marrow edema or abnormal enhancement was visualized on MRI, osteoarth ritic changes throughout midfoot and forefoot. Patient states that he has been fatigued, feeling tired the last few days, denies any pain of his lower extremity. Review of Systems <JEAN CARLOS Staples - Last Filed: 09/10/22 14:55> Review of Systems Narrative: Review of systems is negative for acute abnormalities unless otherwise noted in HPI Patient History <JEAN CARLOS Staples - Last Filed: 09/10/22 14:55> Social History household members: family Smoking Status: Never smoker alcohol intake: current Smoking Status: Never smoker alcohol intake frequency: 0-2 drinks per day Substance Use Type: does not use Exam <JEAN CARLOS Staples - Last Filed: 09/10/22 14:55> Narrative Exam Narrative: Reviewed vitals signs and nursing notes. General: cooperative, comfortable, in no acute distress, well groomed, overweight, HEENT: symmetrical facial expressions, moist mucous membranes Cardiovascular: regular rate and rhythm, no peripheral edema, warm extremities Respiratory: normal effort, occasional phlegm producing cough, states it is better than previously, able to speak in complete sentences, without wheezing, stridor, or abnormal breath sounds. No retractions or tachypnea. GI: abdomen soft, protuberant, nontender to palpation, nondistended, without masses, rebound tenderness or exquisite tenderness with exam. MSK: moves all extremities, neurovascularly intact, no weakness, normal tone, erythema and edema notable to left 1st 3 toes at the distal aspect, a blister verses callus is notable on the plantar aspect of his forefoot approximately 2 cm x 4 cm with a brown pigment in the middle. No surrounding erythema, no open wound or drainage, flexion of great toes is intact Skin: brisk capillary refill, without pallor, drainage, or wound, erythema present to the distal aspect of his 1st 3 toes on the left Neuro: normal speech and cognition, A&O x3, ambulatory, clear speech Psych: mental status is grossly normal, congruent mood, normal affect, pleasant and cooperative Initial Vital Signs Initial Vital Signs: Vital Signs Temperature 98.1 F 09/10/22 10:33 Pulse Rate 97 H 09/10/22 10:33 Respiratory Rate 16 09/10/22 10:33 Blood Pressure 157/79 H 09/10/22 10:33 Pulse Oximetry 97 09/10/22 10:33 Oxygen Delivery Method 09/10/22 10:33 <Payton Killian DO - Last Filed: 09/10/22 19:28> Initial Vital Signs Initial Vital Signs: Vital Signs Temperature 98.1 F 09/10/22 10:33 Pulse Rate 97 H 09/10/22 10:33 Respiratory Rate 16 09/10/22 10:33 Blood Pressure 157/79 H 09/10/22 10:33 Pulse Oximetry 97 09/10/22 10:33 Oxygen Delivery Method 09/10/22 10:33 Course <JEAN CARLOS Staples - Last Filed: 09/10/22 14:55> Orders Ordered: ED Orders 09/10/22 10:41 Hemoglobin A1C% w Est Avg Glu Stat Uric Acid Stat 09/10/22 10:52 Blood Culture Stat CBC Auto Diff [Complete Blood Count AUTO DIFF] Stat CMP [Comprehensive Metabolic Panel] Stat CRP [C-Reactive Protein Quant] Stat ESR [Erythrocyte Sedimentation Rate] Stat 09/10/22 12:31 COVID19 -Nasal RAPID/Pre-Proc Stat 09/10/22 12:58 Chest [XR chest 2V] Stat 09/10/22 13:07 XR foot LT min 3V Stat 09/10/22 14:23 CT angio abd aorta runoff Urgent 09/11/22 05:00 Basic Metabolic Panel Routine Complete Blood Count AUTO DIFF Routine Acetaminophen (Acetaminophen 325 Mg Tablet) 650 mg PO Q6HR PRN PRN Reason: Fever/Mild Pain (1-3) Enoxaparin Sodium (Enoxaparin 40 Mg/0.4 Ml Syringe) 40 mg SUBCUT DAILY [facility] Ceftriaxone Sodium 2,000 mg/ (Sodium Chloride) 100 mls @ 200 mls/hr IV Q24H [facility] Last Admin: 09/10/22 17:04 Dose: 200 mls/hr Documented By: EMILY Vancomycin HCl (Vancomycin) 1,250 mg in 250 mls @ 250 mls/hr IV Q12H [facility] Ondansetron HCl (Ondansetron 4 Mg/2 Ml Inj) 4 mg IV Q8HR PRN PRN Reason: Nausea And Vomiting Vancomycin HCl (Vancomycin Trough) 1 request [facility] [id number] [facility] Stop: 09/11/22 23:31 Discontinued Medications Vancomycin HCl/Dextrose (Vancomycin) 2,000 mg in 400 mls @ 200 mls/hr IV NOW ONE Stop: 09/10/22 12:39 Last Infusion: 09/10/22 13:49 Dose: 0 mls/hr Documented By: Admin: 09/10/22 11:40 Dose: 200 mls/hr Documented By: GERRY Lactated Ringer's (Lactated Ringers) 500 mls @ 1,000 mls/hr IV BOLUS ONE Stop: 09/10/22 12:49 Last Infusion: 09/10/22 13:23 Dose: 0 mls/hr Documented By: Admin: 09/10/22 12:33 Dose: 1,000 mls/hr Documented By: GERRY Consultations Consultation #1: Consultation with Dr. Santana who is on-call for Orthopedics regarding patient's presentation, history, medication regimen and failure on oral antibiotics needing IV antibiotics for resolution. She agrees that patient should be kept in the hospital, will be admitted to Medicine, she understands that he has an MRI and will review. She was sent photos of patient's plantar, dorsum, and lower extremity of his left foot. Time: 12:29 Consultation #2: Hospitalist was phone, he was admitting another patient, we will retry, patient's vancomycin is infusing, ordered lactated Ringer's and repeat chest x- ray as patient had a chest cold recently and still has a mildly productive cough. Time: 12:45 Consultation #3: Dr. Biggs accepts patient for admission Vital Signs Vital signs: Vital Signs - 8 hr 09/10/22 11:43 09/10/22 12:16 09/10/22 13:17 Temperature 98 F Pulse Rate 87 87 75 Respiratory Rate 18 18 18 Blood Pressure 130/89 123/68 120/68 Pulse Oximetry 99 99 98 Oxygen Delivery Method Room Air 09/10/22 13:49 Temperature Pulse Rate 90 Respiratory Rate 18 Blood Pressure 130/72 Pulse Oximetry 96 Oxygen Delivery Method Room Air <Payton Killian, DO - Last Filed: 09/10/22 19:28> Orders Ordered: ED Orders 09/10/22 10:41 Hemoglobin A1C% w Est Avg Glu Stat Uric Acid Stat 09/10/22 10:52 Blood Culture Stat CBC Auto Diff [Complete Blood Count AUTO DIFF] Stat CMP [Comprehensive Metabolic Panel] Stat CRP [C-Reactive Protein Quant] Stat ESR [Erythrocyte Sedimentation Rate] Stat 09/10/22 12:31 COVID19 -Nasal RAPID/Pre-Proc Stat 09/10/22 12:58 Chest [XR chest 2V] Stat 09/10/22 13:07 XR foot LT min 3V Stat 09/10/22 14:23 CT angio abd aorta runoff Urgent 09/11/22 05:00 Basic Metabolic Panel Routine Complete Blood Count AUTO DIFF Routine Acetaminophen (Acetaminophen 325 Mg Tablet) 650 mg PO Q6HR PRN PRN Reason: Fever/Mild Pain (1-3) Enoxaparin Sodium (Enoxaparin 40 Mg/0.4 Ml Syringe) 40 mg SUBCUT DAILY [facility] Ceftriaxone Sodium 2,000 mg/ (Sodium Chloride) 100 mls @ 200 mls/hr IV Q24H [facility] Last Admin: 09/10/22 17:04 Dose: 200 mls/hr Documented By: LDV Vancomycin HCl (Vancomycin) 1,250 mg in 250 mls @ 250 mls/hr IV Q12H [facility] Ondansetron HCl (Ondansetron 4 Mg/2 Ml Inj) 4 mg IV Q8HR PRN PRN Reason: Nausea And Vomiting Vancomycin HCl (Vancomycin Trough) 1 request [facility] [id number] [facility] Stop: 09/11/22 23:31 Discontinued Medications Vancomycin HCl/Dextrose (Vancomycin) 2,000 mg in 400 mls @ 200 mls/hr IV NOW ONE Stop: 09/10/22 12:39 Last Infusion: 09/10/22 13:49 Dose: 0 mls/hr Documented By: Admin: 09/10/22 11:40 Dose: 200 mls/hr Documented By: GERRY Lactated Ringer's (Lactated Ringers) 500 mls @ 1,000 mls/hr IV BOLUS ONE Stop: 09/10/22 12:49 Last Infusion: 09/10/22 13:23 Dose: 0 mls/hr Documented By: Admin: 09/10/22 12:33 Dose: 1,000 mls/hr Documented By: GERRY Vital Signs Vital signs: Vital Signs - 8 hr 09/10/22 11:43 09/10/22 12:16 09/10/22 13:17 Temperature 98 F Pulse Rate 87 87 75 Respiratory Rate 18 18 18 Blood Pressure 130/89 123/68 120/68 Pulse Oximetry 99 99 98 Oxygen Delivery Method Room Air 09/10/22 13:49 Temperature Pulse Rate 90 Respiratory Rate 18 Blood Pressure 130/72 Pulse Oximetry 96 Oxygen Delivery Method Room Air MDM - Extremity (Nontraumatic) <JEAN CARLOS Staples - Last Filed: 09/10/22 14:55> Lab Data Result diagrams: 09/10/22 10:52 09/10/22 10:52 Labs: Lab Results 09/10/22 09/10/22 09/10/22 Range/Units 10:41 10:41 10:52 WBC 14.5 H (4.5-11.0) X10^3/uL RBC 5.17 (4.5-5.9) X10^6/uL Hgb 15.4 (13.5-17.5) g/dL Hct 45.7 (41-53) % MCV 88.4 (80-100) fL MCH 29.7 (26-34) PG MCHC 33.6 (30-36) % RDW 15.1 H (11.6-14.8) % Plt Count 326 (150-400) X10^3/uL Neut % (Auto) 71.1 (50-75) % Lymph % (Auto) 15.5 L (25-40) % [place] % (Auto) 7.7 (3-14) % Eos % (Auto) 4.7 H (2-4) % Baso % (Auto) 1.0 (0-2) % Neut # (Auto) 63404 H (9017-0807) /uL Lymph # (Auto) 2200 (4470-5029) /uL [place] # (Auto) 1100 H (0-900) /uL Eos # (Auto) 700 H (0-450) /uL Baso # (Auto) 100 (0-100) /uL ESR 34 H (0-15) MM/HR Sodium (137-145) mmol/L Potassium (3.4-5.1) mmol/L Chloride (98-107) mmol/L Carbon Dioxide (22-32) mmol/L BUN (9-20) mg/dL Creatinine (0.66-1.25) mg/dL Estimated GFR (>60) mL/min BUN/Creatinine Ratio (6-22) Glucose (70-100) mg/dL Hemoglobin A1c 8.7 H (4.0-6.0) % Uric Acid 6.7 (3.5-8.5) mg/dL Calcium (8.4-10.2) mg/dL Total Bilirubin (0.2-1.3) mg/dL AST (17-59) IU/L ALT (<50) IU/L Alkaline Phosphatase (38-126) U/L C-Reactive Protein (<1.0) mg/dL Total Protein (6.3-8.2) g/dL Albumin (3.5-5.0) g/dL Globulin (1.7-4.1) g/dL Albumin/Globulin Ratio (1.0-2.8) SARS-CoV-2 (PCR) (Negative) 09/10/22 09/10/22 Range/Units 10:52 12:31 WBC (4.5-11.0) X10^3/uL RBC (4.5-5.9) X10^6/uL Hgb (13.5-17.5) g/dL Hct (41-53) % MCV (80-100) fL MCH (26-34) PG MCHC (30-36) % RDW (11.6-14.8) % Plt Count (150-400) X10^3/uL Neut % (Auto) (50-75) % Lymph % (Auto) (25-40) % [place] % (Auto) (3-14) % Eos % (Auto) (2-4) % Baso % (Auto) (0-2) % Neut # (Auto) (9246-3729) /uL Lymph # (Auto) (2047-8782) /uL [place] # (Auto) (0-900) /uL Eos # (Auto) (0-450) /uL Baso # (Auto) (0-100) /uL ESR (0-15) MM/HR Sodium 134 L (137-145) mmol/L Potassium 4.2 (3.4-5.1) mmol/L Chloride 95 L (98-107) mmol/L Carbon Dioxide 28 (22-32) mmol/L BUN 23 H (9-20) mg/dL Creatinine 1.03 (0.66-1.25) mg/dL Estimated GFR > 60 (>60) mL/min BUN/Creatinine Ratio 22.3 H (6-22) Glucose 215 H (70-100) mg/dL Hemoglobin A1c (4.0-6.0) % Uric Acid (3.5-8.5) mg/dL Calcium 9.3 (8.4-10.2) mg/dL Total Bilirubin 0.5 (0.2-1.3) mg/dL AST 37 (17-59) IU/L ALT 56 H (<50) IU/L Alkaline Phosphatase 74 (38-126) U/L C-Reactive Protein 1.3 H (<1.0) mg/dL Total Protein 7.3 (6.3-8.2) g/dL Albumin 4.1 (3.5-5.0) g/dL Globulin 3.2 (1.7-4.1) g/dL Albumin/Globulin Ratio 1.3 (1.0-2.8) SARS-CoV-2 (PCR) Negative (Negative) Imaging Data Extremity x-ray #1: Radiologist's Impression: PROCEDURE:? XR FOOT LT MIN 3V ? INDICATIONS:? osteomyelitis vs cellulitis ? TECHNIQUE:? 3 views of the foot were acquired.? ? COMPARISON:? [facility], MR, FOOT LT WO/W CON, 09/06/2022, 17:14. ? FINDINGS:? ? Bones:? Joint space loss and periarticular lucency present at the 1st TMT joint.? There is mild adjacent periosteal reaction.? No acute displcaed fracture visualized. ? Soft tissues:? No tibiotalar joint effusion.? Achilles tendon appears normal.? ? ? IMPRESSION:? Joint space loss and periarticular lucency present at the 1st TMT joint could represent osteomyelitis and/or septic arthritis as per recent MRI. ? ? Dictated by: Matthew Damon M.D. on 09/10/2022 at 14:13 ? ? Approved by: Matthew Damon M.D. on 09/10/2022 at 14:23 ? Chest x-ray: Radiologist's Impression: PROCEDURE:? XR CHEST 2V ? INDICATIONS:? coughing after trauma ? TECHNIQUE:? 2 views of the chest were acquired.? ? COMPARISON:? [facility], CR, XR CHEST 2V, 08/31/2022, 22:17.? [facility], CR, XR CHEST 2V, 11/16/2018, 15:23. ? FINDINGS:? ? Surgical changes and devices:? None.? ? Lungs and pleura:? Lungs are clear.? No pleural effusions or pneumothorax.? ? Mediastinum:? Mediastinal contours are normal.? Heart size is normal.? ? Bones and chest wall:? No suspicious bony abnormalities.? Soft tissues appear unremarkable.? ? IMPRESSION:? No acute cardiopulmonary abnormality. ? ? Dictated by: Matthew Damon M.D. on 09/10/2022 at 14:23 ? ? Approved by: Matthew Damon M.D. on 09/10/2022 at 14:26 ? foot mri: Radiologist's Impression: PROCEDURE:? MR FOOT LT WO/W CON ? INDICATIONS:? PAIN TO LT. TOE ? TECHNIQUE:? Noncontrast coronal T1 spin echo and STIR, sagittal T1 spin echo with fat saturation and STIR, axial T1 spin echo and T2 fast spin echo with fat saturation.? After the administration of contrast, axial/sagittal/coronal T1 spin echo with fat saturation through the left midfoot and forefoot.? ? COMPARISON:? None. ? FINDINGS:? Image quality:? Excellent.? ? Bones:? There is marrow edema involving base and shaft of 1st metatarsal bone.? Marrow edema involving 2nd metatarsal base and shaft is also seen.? There is also marrow edema in adjacent medial cuneiform and middle cuneiform.? Cortical irregularity along articular surfaces of 1st metatarsal base and adjacent medial cuneiform is also seen.? Dorsal subluxation at 2nd MTP joint is noted.? No discrete fracture line is seen.? Marrow edema is also noted involving 2nd proximal phalanx without discrete fracture line.? No gross bony erosive changes are seen in 2nd metatarsal shaft or 2nd proximal phalanx.? Osteoarthritic changes are noted throughout midfoot and forefoot.? No other area of abnormal marrow signal is seen.? After IV contrast infusion, abnormal enhancement within above-mentioned area of marrow edema is noted. ? Soft tissues:? There is significant soft tissue edema and swelling over dorsum of midfoot and forefoot.? No definite ulceration is seen.? No discrete drainable fluid collection.? There is edema involving plantar foot muscles without discrete intramuscular fluid collection.? Heterogeneous contrast enhancement at the area of soft tissue swelling is seen.? Forefoot tendons show no full-thickness rupture. ? IMPRESSION:? 1. Marked soft tissue swelling over dorsum of midfoot and forefoot suggestive of cellulitis.? No discrete drainable abscess collection. 2. Marrow edema involving 1st and 2nd metatarsal shafts and adjacent medial and middle cuneiform with bony erosive changes involving 1st TMT joint.? Marrow edema also noted involving 2nd proximal phalangeal shaft with dorsal subluxation/dislocation at 2nd MTP joint.? No definite fracture line is seen.? Finding is concerning for osteomyelitis and septic arthritis.? Insufficiency fracture cannot be entirely excluded.? Clinical correlation and follow-up is recommended. 3.? No other area of marrow edema or abnormal enhancement.? Osteoarthritic changes throughout midfoot and forefoot. ? ? Dictated by: Caden Newell M.D. on 09/07/2022 at 9:18 ? ? Approved by: Caden Newell M.D. on 09/07/2022 at 9:40 ? MDM Narrative Medical decision making narrative: This is a 61-year-old male with history of diabetes, PETERSON on CPAP at night, gout, high blood pressure who presents to the emergency department complaining of concern for osteomyelitis of his left foot with a MRI of his left foot showing marked soft tissue swelling over the dorsum of the midfoot and forefoot suggestive of cellulitis, no discrete drainable abscess collection. Marrow edema involving the 1st and 2nd metatarsal shafts an adjacent medial and middle cuneiform with bony erosive changes involving the 1st TMT joint. Marrow edema is also noted involving the 2nd proximal phalangeal shaft with dorsal subluxation/dislocation at the 2nd MTP joint. No definite fracture line is seen. Finding is concerning for osteomyelitis and septic arthritis with insufficiency fracture not entirely excluded. Patient has been on Augmentin for 3 weeks, doxycycline for the last 2 weeks, and has not had any improvement. Agreement between hospitalist, Dr. Glaser and patient for admission for IV a ntibiotics with not responding to treatment at home. Patient had an upper respiratory infection recently. He continued to have a productive cough, chest x-ray does not show any acute cardiopulmonary abnormality today. Patient has a leukocytosis of 14.5, without anemia, no thrombocytopenia, ESR is elevated at 34, no significant electrolyte abnormalities, glucose is 215, hemoglobin A1c is 8.7, his CRP is elevated at 1.3, COVID PCR is negative. Uric acid is 6.7. Differential diagnoses include osteomyelitis versus pathologic fracture, cellulitis, cellulitis with abscess, septic arthritis, gouty arthritis with erosive changes, Charcot Melva tooth, diabetic ulcer. <Payton Killian, DO - Last Filed: 09/10/22 19:28> Lab Data Labs: Lab Results 09/10/22 09/10/22 09/10/22 Range/Units 10:41 10:41 10:52 WBC 14.5 H (4.5-11.0) X10^3/uL RBC 5.17 (4.5-5.9) X10^6/uL Hgb 15.4 (13.5-17.5) g/dL Hct 45.7 (41-53) % MCV 88.4 (80-100) fL MCH 29.7 (26-34) PG MCHC 33.6 (30-36) % RDW 15.1 H (11.6-14.8) % Plt Count 326 (150-400) X10^3/uL Neut % (Auto) 71.1 (50-75) % Lymph % (Auto) 15.5 L (25-40) % [place] % (Auto) 7.7 (3-14) % Eos % (Auto) 4.7 H (2-4) % Baso % (Auto) 1.0 (0-2) % Neut # (Auto) 49065 H (5235-4367) /uL Lymph # (Auto) 2200 (5788-6099) /uL [place] # (Auto) 1100 H (0-900) /uL Eos # (Auto) 700 H (0-450) /uL Baso # (Auto) 100 (0-100) /uL ESR 34 H (0-15) MM/HR Sodium (137-145) mmol/L Potassium (3.4-5.1) mmol/L Chloride (98-107) mmol/L Carbon Dioxide (22-32) mmol/L BUN (9-20) mg/dL Creatinine (0.66-1.25) mg/dL Estimated GFR (>60) mL/min BUN/Creatinine Ratio (6-22) Glucose (70-100) mg/dL Hemoglobin A1c 8.7 H (4.0-6.0) % Uric Acid 6.7 (3.5-8.5) mg/dL Calcium (8.4-10.2) mg/dL Total Bilirubin (0.2-1.3) mg/dL AST (17-59) IU/L ALT (<50) IU/L Alkaline Phosphatase (38-126) U/L C-Reactive Protein (<1.0) mg/dL Total Protein (6.3-8.2) g/dL Albumin (3.5-5.0) g/dL Globulin (1.7-4.1) g/dL Albumin/Globulin Ratio (1.0-2.8) SARS-CoV-2 (PCR) (Negative) 09/10/22 09/10/22 Range/Units 10:52 12:31 WBC (4.5-11.0) X10^3/uL RBC (4.5-5.9) X10^6/uL Hgb (13.5-17.5) g/dL Hct (41-53) % MCV (80-100) fL MCH (26-34) PG MCHC (30-36) % RDW (11.6-14.8) % Plt Count (150-400) X10^3/uL Neut % (Auto) (50-75) % Lymph % (Auto) (25-40) % [place] % (Auto) (3-14) % Eos % (Auto) (2-4) % Baso % (Auto) (0-2) % Neut # (Auto) (0030-1318) /uL Lymph # (Auto) (3640-5661) /uL [place] # (Auto) (0-900) /uL Eos # (Auto) (0-450) /uL Baso # (Auto) (0-100) /uL ESR (0-15) MM/HR Sodium 134 L (137-145) mmol/L Potassium 4.2 (3.4-5.1) mmol/L Chloride 95 L (98-107) mmol/L Carbon Dioxide 28 (22-32) mmol/L BUN 23 H (9-20) mg/dL Creatinine 1.03 (0.66-1.25) mg/dL Estimated GFR > 60 (>60) mL/min BUN/Creatinine Ratio 22.3 H (6-22) Glucose 215 H (70-100) mg/dL Hemoglobin A1c (4.0-6.0) % Uric Acid (3.5-8.5) mg/dL Calcium 9.3 (8.4-10.2) mg/dL Total Bilirubin 0.5 (0.2-1.3) mg/dL AST 37 (17-59) IU/L ALT 56 H (<50) IU/L Alkaline Phosphatase 74 (38-126) U/L C-Reactive Protein 1.3 H (<1.0) mg/dL Total Protein 7.3 (6.3-8.2) g/dL Albumin 4.1 (3.5-5.0) g/dL Globulin 3.2 (1.7-4.1) g/dL Albumin/Globulin Ratio 1.3 (1.0-2.8) SARS-CoV-2 (PCR) Negative (Negative) Discharge Plan Departure Patient Disposition: Admitted As Inpatient Clinical Impression: History of diabetes mellitus Osteomyelitis Qualifiers: Osteomyelitis type: unspecified type Osteomyelitis location: foot Laterality: left Qualified Code(s): M86.9 - Osteomyelitis, unspecified Cellulitis Qualifiers: Site of cellulitis: extremity Site of cellulitis of extremity: toe Laterality: left Qualified Code(s): L03.032 - Cellulitis of left toe Admit Date/Time: 09/10/22 14:26 Admit Provider: Papo Biggs <Payton Killian DO - Last Filed: 09/10/22 19:28> Cosign ED Attending Cosignature Attestation: I was immediately available in the department for consultation. Documentation has been reviewed. Case was discussed. Imaging was reviewed. Agree with plan and had initiated antibiotics
[2022-09-10] MEDS: LACTATED RINGERS 500 ML 1000 ML IV (12:33)
--- NOTE | 2022-09-10 12:58 | DI.RAD.S_ITS ---
PROCEDURE: XR CHEST 2V INDICATIONS: coughing after trauma TECHNIQUE: 2 views of the chest were acquired. COMPARISON: [facility], , XR CHEST 2V, 08/31/2022, 22:17. [facility], ZUNILDA, XR CHEST 2V, 11/16/2018, 15:23. FINDINGS: Surgical changes and devices: None. Lungs and pleura: Lungs are clear. No pleural effusions or pneumothorax. Mediastinum: Mediastinal contours are normal. Heart size is normal. Bones and chest wall: No suspicious bony abnormalities. Soft tissues appear unremarkable. IMPRESSION: No acute cardiopulmonary abnormality. Dictated by: Matthew Damon M.D. on 09/10/2022 at 14:23 Approved by: Matthew Damon M.D. on 09/10/2022 at 14:26
[2022-09-10 13:00] LABS: COVID19 -Nasal RAPID Negative (Negative)
--- NOTE | 2022-09-10 13:07 | DI.RAD.S_ITS ---
PROCEDURE: XR FOOT LT MIN 3V INDICATIONS: osteomyelitis vs cellulitis TECHNIQUE: 3 views of the foot were acquired. COMPARISON: [facility], MR, MR FOOT LT WO/W CON, 09/06/2022, 17:14. FINDINGS: Bones: Joint space loss and periarticular lucency present at the 1st TMT joint. There is mild adjacent periosteal reaction. No acute displcaed fracture visualized. Soft tissues: No tibiotalar joint effusion. Achilles tendon appears normal. IMPRESSION: Joint space loss and periarticular lucency present at the 1st TMT joint could represent osteomyelitis and/or septic arthritis as per recent MRI. Dictated by: Matthew Damno M.D. on 09/10/2022 at 14:13 Approved by: Matthew Damon M.D. on 09/10/2022 at 14:23
--- NOTE | 2022-09-10 13:38 | P.CONS_ITS ---
History of Present Illness Consult details Date Patient Seen: 09/10/22 Time Patient Seen: 16:41 Chief complaint: sent by [facility] infection lt foot big toe Reason for consult: Concern foot infection left Requesting provider: Bettina Harp Narrative: 61-year-old diabetic male with reported left foot swelling and erythema. Per report has been on oral antibiotics with his primary care doctor, Dr. Silverman. Report oral antibiotics for 3 weeks. Persistent swelling. An MRI ordered on the by Dr. Silverman And patient presented to emergency room at [facility] today. Patient states he has had diabetes for a long time levels fluctuating between 7 and 8 on his hemoglobin A1c. Has worn orthotics as well but states they have worn out and he was trying to get some new ones. Notes that his 2nd and 3rd toes are curling when pressing up against his shoe. States that a chronic injury of his 2nd toe since he was 14 minutes states it has always been up never right. Denies any other pain in his feet. States the 2nd and 3rd toe of the red just the tips for the pressure is. Also states he was on prednisone last week for some lung issues. States his primary care doctor wanted him to see Dr. Angulo who is out of town and was in told to come to the emergency room Meds Home Medications and Allergies Home Medications Medication Instructions Recorded Confirmed Type benzonatate 100 mg capsule 100 mg PO QID PRN cough #30 caps 11/16/18 11/16/18 Rx (Juaquin Desai) hydrochlorothiazide 25 mg tablet 1 tab PO DAILY 11/16/18 11/16/18 History insulin aspart U-100 100 unit/mL 18 - 20 units SUBCUT BID 11/16/18 11/16/18 History (3 mL) subcutaneous pen insulin glargine U-300 conc 300 80 units SUBCUT BID 11/16/18 11/16/18 History unit/mL (1.5 mL) subcutaneous pen loratadine 10 mg tablet 1 tab PO DAILY 11/16/18 11/16/18 History sitagliptin 50 mg-metformin ER 2 tab PO QPM 11/16/18 11/16/18 History 1,000 mg tablet,extended release 24h mp albuterol sulfate 90 mcg/actuation 1 inh inhalation BID 09/10/22 09/10/22 History aerosol inhaler (ProAir HFA) amoxicillin 500 mg-potassium 1 tab PO BID 09/10/22 09/10/22 History clavulanate 125 mg tablet atorvastatin 40 mg tablet 40 mg PO DAILY 09/10/22 09/10/22 History codeine 10 mg-guaifenesin 100 mg/5 5 ml PO BEDTIME PRN Cough 09/10/22 09/10/22 History mL oral liquid doxycycline hyclate 100 mg tablet 100 mg PO BID 09/10/22 09/10/22 History fluticasone 500 mcg-salmeterol 50 1 ea inhalation BID 09/10/22 09/10/22 History mcg/dose blistr powdr for inhalation (Advair Diskus) fluticasone propionate 50 1 spray intranasal BID 09/10/22 09/10/22 History mcg/actuation nasal spray,suspension furosemide 20 mg tablet 20 mg PO DAILY 09/10/22 09/10/22 History hydrocodone 5 mg-acetaminophen 325 1 tab PO BEDTIME PRN Pain (Scale 09/10/22 09/10/22 History mg tablet Score 4-6) omeprazole 20 mg capsule,delayed 20 mg PO BID 09/10/22 09/10/22 History release Allergies Allergy/AdvReac Type Severity Reaction Status Date / Time No Known Drug Allergies Allergy Verified 09/10/22 10:35 Review of Systems Review of Systems Narrative: Diabetes, History of foot injury as a child. Previous use of orthotic recent use of steroids for lungs, pleural effusion ROS: Yes All systems reviewed with the patient and are negative except as otherwise documented Exam Vital Signs (past 8 hours): - 09/10/22 10:33 09/10/22 11:43 09/10/22 12:16 Temperature 98.1 F 98 F Pulse Rate 97 H 87 87 Respiratory Rate 16 18 18 Blood Pressure 157/79 H 130/89 123/68 Pulse Oximetry 97 99 99 Oxygen Delivery Method Room Air Room Air 09/10/22 13:17 Temperature Pulse Rate 75 Respiratory Rate 18 Blood Pressure 120/68 Pulse Oximetry 98 Oxygen Delivery Method Oxygen Delivery Method Room Air Narrative Exam Narrative: Alert oriented male no acute distress. Seated in his room elevating his foot. He reports to me that he has noticed some swelling and increase curling of the 2nd and 3rd toes. Breathing is unlabored on room air. He does note that he was treated with steroids for his lungs recently. Heart is regular rate and rhythm. General exam is normocephalic atraumatic Left lower extremity exam demonstrates mild edema and swelling over the forefoot and lesser toes. There rigid clawtoe deformities of the lesser toes. There is a plantar callus at the 3rd MTP head. No open wounds. No malodor. No drainage. No tenderness or swelling or erythema around the midfoot. Endorses a clicking around his 1st MTP joint when he moves his great toe. 2+ palpable do rsalis pedis pulse. Peripheral neuropathy. Calf is soft. Objective Imaging Left foot three view x-ray: My impression: Three view left foot demonstrates erosions of the 1st TMT joint consistent with previous Charcot versus more acute arthritic process. Clawing of the lesser toes. Appears to be chronic dislocation 2nd MTP joint. MRI left foot: My impression: Changes consistent with arthritic or Charcot induration 1st TMT joint, midfoot arthritis. Chronic 2nd MTP dislocation. Dorsal soft tissue swelling no abscess. Radiologist's impression: Marked soft tissue swelling over dorsum midfoot forefoot suggestive of cellulitis no drainable abscess collection. Edema along 2nd and 1st metatarsal shafts adjacent to medial and middle cuneiform with bony erosive changes 1st TMT joint where edema noted proximal phalangeal shaft dorsal subluxation dislocation 2nd MTP joint no fracture seen. Labs Result Diagrams: 09/10/22 10:52 09/10/22 10:52 Labs: Laboratory Results - last 24 hr 09/10/22 09/10/22 09/10/22 10:52 10:52 12:31 WBC 14.5 H RBC 5.17 Hgb 15.4 Hct 45.7 MCV 88.4 MCH 29.7 MCHC 33.6 RDW 15.1 H Plt Count 326 Neut % (Auto) 71.1 Lymph % (Auto) 15.5 L Josephine % (Auto) 7.7 Eos % (Auto) 4.7 H Baso % (Auto) 1.0 Neut # (Auto) 66149 H Lymph # (Auto) 2200 Josephine # (Auto) 1100 H Eos # (Auto) 700 H Baso # (Auto) 100 ESR 34 H Sodium 134 L Potassium 4.2 Chloride 95 L Carbon Dioxide 28 BUN 23 H Creatinine 1.03 Estimated GFR > 60 BUN/Creatinine Ratio 22.3 H Glucose 215 H Calcium 9.3 Total Bilirubin 0.5 AST 37 ALT 56 H Alkaline Phosphatase 74 C-Reactive Protein 1.3 H Total Protein 7.3 Albumin 4.1 Globulin 3.2 Albumin/Globulin Ratio 1.3 SARS-CoV-2 (PCR) Negative [facility] Tobacco & Substance Use Smoking Status: Never smoker Assessment & Plan Assessment and plan (1) Clawtoe, acquired: Problem details: Patient has left foot lesser claw toes and chronic dislocation of the 2nd MTP joint. Causing pressure on the the ends of his toes and make him at risk for plantar metatarsal head ulceration. These are chronic rigid deformities. Recommend outpatient treatment with new accommodative orthotics. If this fails may require surgical correction. This is not an acute issue that needs to be addressed in the hospital. And would want to optimize diabetic control before surgery for healing. No signs of infection. There is a callus under the 3rd MTP joint. Status: Acute (2) Charcot foot due to diabetes mellitus: Problem details: Has a Charcot arthropathy changes around the 1st TMT joint characterized by erosions. He has no pain or swelling in this area meaning this is likely old chronic Charcot changes. Recommend accommodative inserts to reduce pressure and avoid ulceration. Recommend close outpatient follow-up with a is manager and student education specialist. We discussed that Charcot changes on MRI are commonly difficult to separate from infectious changes. However the patient does not have a clinical peer inside of infection or osteomyelitis. He does have a mildly elevated white count but was recently on prednisone. His ESR is 34 and CRP 1.3. I do not see any for continued antibiotics. Recommend outpatient follow-up for appropriate accommodative footwear and tight glycemic control. He will need to check his feet daily to make sure he is not developing ulceration as his uncontrolled diabetes puts him at risk for ulceration which would then be a risk for infection and osteomyelitis. Status: Acute Plan: Findings were discussed with the patient and hospitalist physician Plan COVID-19 COVID-19 status: Negative Time Spent With Patient Critical Care time: I spent a total of [] minutes of critical care time on this patient's care today; this time is exclusive of procedural time.
[2022-09-10 14:09] LABS: Uric Acid 6.7 mg/dL (3.5-8.5)
--- NOTE | 2022-09-10 14:23 | DI.CT.S_ITS ---
PROCEDURE: CT ANGIO ABD AORTA RUNOFF INDICATIONS: nonhealing diabetic ulcer, left leg, +osteomyelitis TECHNIQUE: After the administration of intravenous contrast, 2.5 mm sections acquired from T12 to the feet, with optional delayed image acquisition from the knees to the feet. 3-dimensional maximum intensity projection (MIP) coronal and sagittal reformats, and/or 3-dimensional volume rendering reformatting was then performed. For radiation dose reduction, the following was used: automated exposure control. COMPARISON: [facility], CR, XR FOOT LT MIN 3V, 09/10/2022, 13:10. [facility], MR, MR FOOT LT WO/W CON, 09/06/2022, 17:14. FINDINGS: Image quality: Adequate. Extravascular tissues: No pleural effusion. . Liver is normal in size and enhancement. Gallbladder is unremarkable . Biliary system is non dilated. Pancreas enhances normally. Spleen is normal in size and enhancement. No adrenal nodules. Kidneys are normal in size and enhancement, without hydronephrosis. Non opacified bowel loops demonstrate normal wall thickness and enhancement. No free fluid or air. No retroperitoneal or mesenteric adenopathy. . Bladder wall thickness is normal. . Abdominal aorta: No aneurysm or dissection. Mild atherosclerosis. Right lower extremity: Mild multifocal atherosclerosis upper leg arteries. Patent right common iliac, external iliac, internal iliac, common femoral, femoral, deep femoral, popliteal arteries. Moderate multifocal atherosclerosis lower leg arteries. Nonvisualization of the anterior tibial artery just after its origin, likely markedly narrowed or occluded. Nonvisualization of the peroneal artery at the mid calf, likely markedly narrowed or occluded. Posterior tibial artery visualized to the level of the ankle. Left lower extremity: Mild multifocal atherosclerosis upper leg arteries. Patent left common iliac, external iliac, internal iliac, common femoral, femoral, deep femoral, popliteal arteries. Moderate multifocal atherosclerosis lower leg arteries. Nonvisualization of the peroneal artery at the mid calf, likely markedly narrowed or occluded. Posterior tibial artery and anterior tibial artery visualized to the level of the ankle. Left foot changes better visualized on recent radiographs and MRI. Left lower leg/ankle/foot soft tissue edema. IMPRESSION: 1. Multifocal atherosclerosis. 2. Several calf arteries are not visualized, likely markedly narrowed or occluded. Dictated by: Matthew Damon M.D. on 09/10/2022 at 15:22 Approved by: Matthew Damon M.D. on 09/10/2022 at 15:42
[2022-09-10 14:24] LABS: Hemoglobin A1C% w Est Avg Glu 8.7 % (4.0-6.0)
--- NOTE | 2022-09-10 16:02 | PM.HP.1 ---
History of Present Illness History of Present Illness Date Patient Seen: 09/10/22 Time Patient Seen: 13:00 Chief complaint: sent by [facility] infection lt foot big toe Narrative: Mr. Kaur is a 61M with PMH DM, HTN, PETERSON who presents for concern for osteomyelitis of left foot. Patient was started 3 weeks ago on antibiotics for a bronchitis he states. He then noted he began having swollen and erythematous left foot toes. He was continued on antibiotics for this by his PCP. Because of concern for nonhealing he did get an MRI of his foot last week which showed marked soft tissue swelling over dorsum of foot with no abscess. Marrow edema of 1st and 2nd metatarsal shafts also note that was concerning for osteomyelitis. He was referred to the hospital for this finding. In the ED workup was done, vitals notable for afebrile and mild hypertension. Labs notable for WBC 14.5, creatinine 1.03. ESR 34, CRP 1.3. A1c 8.7. He was ordered for antibiotics and admitted for further treatment. Family history: sister with diabetes Patient History Family & Social History Safety & Behavioral: Feels Safe in Current Yes Environment Been Physically Hurt or No Threatened By a Person Tobacco & Substance use: Smoking Status Never smoker alcohol intake frequency 0-2 drinks per day Substance Use Type does not use Meds Home Medications and Allergies Home Medications Medication Instructions Recorded Confirmed Type benzonatate 100 mg capsule 100 mg PO QID PRN cough #30 caps 11/16/18 11/16/18 Rx (Juaquin Desai) hydrochlorothiazide 25 mg tablet 1 tab PO DAILY 11/16/18 11/16/18 History insulin aspart U-100 100 unit/mL 18 - 20 units SUBCUT BID 11/16/18 11/16/18 History (3 mL) subcutaneous pen insulin glargine U-300 conc 300 80 units SUBCUT BID 11/16/18 11/16/18 History unit/mL (1.5 mL) subcutaneous pen loratadine 10 mg tablet 1 tab PO DAILY 11/16/18 11/16/18 History sitagliptin 50 mg-metformin ER 2 tab PO QPM 11/16/18 11/16/18 History 1,000 mg tablet,extended release 24h mp albuterol sulfate 90 mcg/actuation 1 inh inhalation BID 09/10/22 09/10/22 History aerosol inhaler (ProAir HFA) amoxicillin 500 mg-potassium 1 tab PO BID 09/10/22 09/10/22 History clavulanate 125 mg tablet atorvastatin 40 mg tablet 40 mg PO DAILY 09/10/22 09/10/22 History codeine 10 mg-guaifenesin 100 mg/5 5 ml PO BEDTIME PRN Cough 09/10/22 09/10/22 History mL oral liquid doxycycline hyclate 100 mg tablet 100 mg PO BID 09/10/22 09/10/22 History fluticasone 500 mcg-salmeterol 50 1 ea inhalation BID 09/10/22 09/10/22 History mcg/dose blistr powdr for inhalation (Advair Diskus) fluticasone propionate 50 1 spray intranasal BID 09/10/22 09/10/22 History mcg/actuation nasal spray,suspension furosemide 20 mg tablet 20 mg PO DAILY 09/10/22 09/10/22 History hydrocodone 5 mg-acetaminophen 325 1 tab PO BEDTIME PRN Pain (Scale 09/10/22 09/10/22 History mg tablet Score 4-6) omeprazole 20 mg capsule,delayed 20 mg PO BID 09/10/22 09/10/22 History release Allergies Allergy/AdvReac Type Severity Reaction Status Date / Time No Known Drug Allergies Allergy Verified 09/10/22 10:35 Review of Systems Review of Systems Narrative: 14 systems reviewed and negative aside from what is noted in HPI Exam Vital Signs (past 8 hours): - 09/10/22 10:33 09/10/22 11:43 09/10/22 12:16 Temperature 98.1 F 98 F Pulse Rate 97 H 87 87 Respiratory Rate 16 18 18 Blood Pressure 157/79 H 130/89 123/68 Pulse Oximetry 97 99 99 Oxygen Delivery Method Room Air Room Air 09/10/22 13:17 09/10/22 13:49 09/10/22 15:00 Temperature Pulse Rate 75 90 87 Respiratory Rate 18 18 18 Blood Pressure 120/68 130/72 123/60 Pulse Oximetry 98 96 97 Oxygen Delivery Method Room Air Room Air Oxygen Delivery Method Room Air Narrative Exam Narrative: GEN: no acute distress HEENT: moist mucous membranes, PERRL NECK: trachea midline, no JVD CV: regular rate and rhythm, no murmurs PULM: clear bilaterally, no wheezes, rhonchi, rales ABD: soft, nontender, nondistended, no organomegaly EXT: warm, difficult to palpate pedal pulses, 1+ edema, left toes 2nd and 3rd most swollen with mild erythema NEURO: awake, alert, oriented, no focal deficits Objective Labs Result Diagrams: 09/10/22 10:52 09/10/22 10:52 Labs: Laboratory Results - last 24 hr 09/10/22 09/10/22 09/10/22 10:41 10:41 10:52 WBC 14.5 H RBC 5.17 Hgb 15.4 Hct 45.7 MCV 88.4 MCH 29.7 MCHC 33.6 RDW 15.1 H Plt Count 326 Neut % (Auto) 71.1 Lymph % (Auto) 15.5 L [place] % (Auto) 7.7 Eos % (Auto) 4.7 H Baso % (Auto) 1.0 Neut # (Auto) 87777 H Lymph # (Auto) 2200 [place] # (Auto) 1100 H Eos # (Auto) 700 H Baso # (Auto) 100 ESR 34 H Sodium Potassium Chloride Carbon Dioxide BUN Creatinine Estimated GFR BUN/Creatinine Ratio Glucose Hemoglobin A1c 8.7 H Uric Acid 6.7 Calcium Total Bilirubin AST ALT Alkaline Phosphatase C-Reactive Protein Total Protein Albumin Globulin Albumin/Globulin Ratio SARS-CoV-2 (PCR) 09/10/22 09/10/22 10:52 12:31 WBC RBC Hgb Hct MCV MCH MCHC RDW Plt Count Neut % (Auto) Lymph % (Auto) [place] % (Auto) Eos % (Auto) Baso % (Auto) Neut # (Auto) Lymph # (Auto) [place] # (Auto) Eos # (Auto) Baso # (Auto) ESR Sodium 134 L Potassium 4.2 Chloride 95 L Carbon Dioxide 28 BUN 23 H Creatinine 1.03 Estimated GFR > 60 BUN/Creatinine Ratio 22.3 H Glucose 215 H Hemoglobin A1c Uric Acid Calcium 9.3 Total Bilirubin 0.5 AST 37 ALT 56 H Alkaline Phosphatase 74 C-Reactive Protein 1.3 H Total Protein 7.3 Albumin 4.1 Globulin 3.2 Albumin/Globulin Ratio 1.3 SARS-CoV-2 (PCR) Negative Assessment & Plan Assessment & Plan narrative: 1. Cellulitis with questionable osteomyelitis of lower extremity -presents with toe swelling, leukocytosis, ESR and CRP are elevated but not drastically so -imaging shows possible osteomyelitis -other possible etiology is cellulitis with charcot arthropathy -for now ordered broad spectrum antibiotics with vanco/ceftriaxone -CT of extremities of leg to evaluate patency of vasculature -appreciate ortho consult -follow up blood cultures 2. Type 2 Diabetes on insulin -continue insulin with sliding scale, check achs 3. HTN -continue HCTZ CODE: Full Proxy: Saranya Kaur I have utilized all available resources to reconcile the patient's home medications. Time Spent With Patient Critical Care time: I spent a total of [] minutes of critical care time on this patient's care today; this time is exclusive of procedural time.
[2022-09-10] MEDS: cefTRIAXone 2,000 MG in SODIUM CHLORIDE 0.9% 100 ML 200 MG IV (17:04)
[2022-09-11] VITALS (7 sets, daily range): BP systolic 120–146; BP diastolic 56–60; PULSE 81–92; RESP 16–20; TEMP 36.4–36.9; O2SAT 94–96
[2022-09-11] MEDS: VANCOMYCIN 1,250 MG/250 ML PIGGYBACK 250 MG IV ×2 (01:04→12:50)
[2022-09-11] MEDS: INSULIN GLARGINE 100 UNIT/ML 3ML PEN 80 UNIT SUBCUT ×3 (01:54→20:42)
[2022-09-11 05:37] LABS: Add Manual Diff / Slide Review NO; Basophils Absolute Auto 100 /uL (0-100); Eosinophils Absolute Auto 700 /uL (0-450); Eosinophils Percent Auto 5.8 % (2-4); Hematocrit 45.9 % (41-53); Hemoglobin 15.1 g/dL (13.5-17.5); Lymphocytes Absolute Auto 2800 /uL (1100-4500); Lymphocytes Percent Auto 24.2 % (25-40); Mean Corpuscular HGB Conc 32.8 % (30-36); Mean Corpuscular Volume 88.2 fL (80-100); Monocytes Absolute Auto 900 /uL (0-900); Monocytes Percent Auto 7.9 % (3-14); Neutrophils Absolute Auto 7200 /uL (1500-7000); Neutrophils Percent Auto 61.1 % (50-75); Platelet Count 316 X10^3/uL (150-400); Red Cell Distribution Width 15.1 % (11.6-14.8); White Blood Cell Count 11.8 X10^3/uL (4.5-11.0)
[2022-09-11 05:43] LABS: BUN Creatinine Ratio 18.9 (6-22); Blood Urea Nitrogen 18 mg/dL (9-20); Calcium 9.2 mg/dL (8.4-10.2); Carbon Dioxide 28 mmol/L (22-32); Chloride 95 mmol/L (98-107); Estimated Glomerular Filt Rate > 60 mL/min (>60); Glucose 160 mg/dL (70-100); HEMOLYSIS < 15 (0-50); Sodium 134 mmol/L (137-145)
[2022-09-11] MEDS: BUDESONIDE 0.5 MG/2 ML NEB INH ×2 (08:06→19:20)
[2022-09-11] MEDS: ALBUTEROL 2.5 MG/3 ML NEB (ADULT) INH ×3 (08:07→19:20)
[2022-09-11] MEDS: ATORVASTATIN 20 MG TABLET 40 MG PO (08:37)
[2022-09-11] MEDS: ENOXAPARIN 40 MG/0.4 ML SYRINGE SUBCUT (08:37)
[2022-09-11] MEDS: hydroCHLOROthiazide 25 MG TABLET PO (08:38)
[2022-09-11] MEDS: PANTOPRAZOLE DR 20 MG TABLET PO ×2 (08:38→20:39)
[2022-09-11] MEDS: FUROSEMIDE 20 MG TABLET PO (08:38)
--- NOTE | 2022-09-11 08:51 | CM.DANOTE ---
Addendum entered by Amber Ocasio R.N. 09/11/22 14:52: DCP Cont: Updated pt on current plan for home IV abx. Pt understands but expresses deep concern as to why he cannot be discharged today. Pt is scheduled for PICC placement @ 1900. This was verbalized to pt. DCP told pt that [facility] would be contacting him to further coordinate logistics of place and time for RN teaching. Amber Ocasio RN/RICHARD Addendum entered by Amber Ocasio R.N. 09/11/22 13:29: DCP cont: Per Dr. Santiago, pt is needing 6 weeks of home IV abx of vanco and ceftriaxone. MD is placing PICC line order. DCP faxed referral to [facility]. Spoke with Kalpesh @ [facility] and he states they will look for referral. Might be able to start patient tomorrow if they can get everything set up. DCP to continue to follow pt case. Amber Ocasio RN/RICHARD Original Note: DCP Assessment: Payor confirmed: Nancy Archuleta PCP confirmed: Ngoc Silverman MD Pt is a 61 y.o. M who was sent by his PCP for a concern of osteomyelitis of the L foot. Pt was on abx for the last 3 weeks. Pt was admitted to the acute care unit for osteomyelitis and further work up of diagnosis. DCP met with pt this morning to discuss discharge needs. Pt sitting up on the side of the bed eating breakfast. DCP introduced herself and role. Pt states that he lives in [place] with his , Saranya. Pt states that he is independent at baseline and still works at the [employer]. Pt states that he is hoping to discharge home today. No discharge needs needed at this time. White board updated and instructed to call. Pt thankful for the discussion. P: Once pt is medically stable for discharge, pt to discharge home via POV. Amber Ocasio RN/LESLEYP Discharge Planning/Care Management CM Discharge Assessment Start: 09/11/22 08:50 Freq: Status: Active Protocol: Document 09/11/22 08:50 JAMI (Rec: 09/11/22 08:51 JAMI [id number]) Discharge Planning Assessment Assigned [employer] Amber Ocasio RN/RICHARD Advance Directives? No History Provided By Patient,Medical Record Prior Living Arrangements House Household Members family Type of transporation used prior to Drives own vehicle admit Independent with ADL's Yes Is patient alert and oriented? Yes Discharge Plan Home Transportation Arrangement POV Referrals Initiated None needed Whiteboard Updated in Patient Room with Yes name and ext. # of [employer] Comment Instructed to call Review Status In Process Please Provide Date Initial DC 09/11/22 Assessment Was Performed Next Review Type Continued Stay Review
--- NOTE | 2022-09-11 12:18 | PM.PN.1 ---
Subjective Subjective Interval history: Mr. Kaur is a 61M with PMH DM, HTN, PETERSON who presents for concern for osteomyelitis of left foot. Patient was started 3 weeks ago on antibiotics for a bronchitis he states. He then noted he began having swollen and erythematous left foot toes. He was continued on antibiotics for this by his PCP. Because of concern for nonhealing he did get an MRI of his foot last week which showed marked soft tissue swelling over dorsum of foot with no abscess. Marrow edema of 1st and 2nd metatarsal shafts also note that was concerning for osteomyelitis. He was referred to the hospital for this finding. Osteomyelitis and Charcot foot can have some similarities. However due to the abrupt decrease in white blood count with antibiotic treatment, the possibility of osteomyelitis needs to be on concern. Therefore the hospitalist service feels the patient should continue with a 6 week course of IV antibiotics. Patient is very frustrated with the conflicting information he has been receiving in regards to his treatment and he would like to be discharged as soon as possible if the treatment can be done at home. He prefers not to be in a hospital. Blood cultures are negative and there is no other cultures to define which antibiotics would be best for the osteomyelitis treatment. Therefore treatment needs to be empiric which would include vancomycin and ceftriaxone. Exam Vital Signs (past 8 hours): - 09/11/22 07:43 09/11/22 08:07 09/11/22 11:45 Temperature 98.0 F Pulse Rate 81 92 H Respiratory Rate 20 16 Blood Pressure 130/58 L Pulse Oximetry 94 95 96 Oxygen Delivery Method Room Air Room Air Oxygen Flow Rate 0 Oxygen Delivery Method Room Air Oxygen Flow Rate 0 Narrative Exam Narrative: GEN: no acute distress HEENT: moist mucous membranes, PERRL NECK: trachea midline, no JVD CV: regular rate and rhythm, no murmurs PULM: clear bilaterally, no wheezes, rhonchi, rales ABD: soft, nontender, nondistended, no organomegaly EXT: warm, difficult to palpate pedal pulses, 1+ edema, left toes 2nd and 3rd most swollen with mild erythema. Area of erythema has not increased from previous day based on markings on the foot. NEURO: awake, alert, oriented, no focal deficits Objective Labs Result Diagrams: 09/11/22 05:13 09/11/22 05:13 Labs: Laboratory Results - last 24 hr 09/10/22 09/10/22 09/10/22 10:41 10:41 12:31 WBC RBC Hgb Hct MCV MCH MCHC RDW Plt Count Neut % (Auto) Lymph % (Auto) Mcdonough % (Auto) Eos % (Auto) Baso % (Auto) Neut # (Auto) Lymph # (Auto) Mcdonough # (Auto) Eos # (Auto) Baso # (Auto) Sodium Potassium Chloride Carbon Dioxide BUN Creatinine Estimated GFR BUN/Creatinine Ratio Glucose Hemoglobin A1c 8.7 H Uric Acid 6.7 Calcium SARS-CoV-2 (PCR) Negative 09/11/22 09/11/22 05:13 05:13 WBC 11.8 H RBC 5.20 Hgb 15.1 Hct 45.9 MCV 88.2 MCH 29.0 MCHC 32.8 RDW 15.1 H Plt Count 316 Neut % (Auto) 61.1 Lymph % (Auto) 24.2 L Mcdonough % (Auto) 7.9 Eos % (Auto) 5.8 H Baso % (Auto) 1.0 Neut # (Auto) 7200 H Lymph # (Auto) 2800 Mcdonough # (Auto) 900 Eos # (Auto) 700 H Baso # (Auto) 100 Sodium 134 L Potassium 4.0 Chloride 95 L Carbon Dioxide 28 BUN 18 Creatinine 0.95 Estimated GFR > 60 BUN/Creatinine Ratio 18.9 Glucose 160 H Hemoglobin A1c Uric Acid Calcium 9.2 SARS-CoV-2 (PCR) [facility] Medical History (Updated 09/11/22 @ 07:47 by Anayeli Nye RN) Hypertension Obstructive sleep apnea on CPAP Social History household members: family Smoking Status: Never smoker alcohol intake: current Assessment & Plan Assessment & Plan narrative: 1. Cellulitis with questionable osteomyelitis of lower extremity. Charcot foot changes and osteomyelitis can look similarly. However due to the response to IV antibiotics thus far with a significant decrease in white blood count, it is reasonable that the patient be treated with a concern for osteomyelitis. -presents with toe swelling, leukocytosis, ESR and CRP are elevated but not drastically so, continue to follow CRP -imaging shows possible osteomyelitis, will treat with intravenous antibiotics for this concern -other possible etiology is cellulitis with charcot arthropathy, however was felt that the concern for osteomyelitis takes precedent -for now ordered broad spectrum antibiotics with vanco/ceftriaxone. These will be continued for the duration of treatment of osteomyelitis -CT of extremities of leg to evaluate patency of vasculature demonstrate compromise flow to both lower extremities with the perineal artery bilaterally either occluded or compromise and on the right side the anterior tibial artery occluded or narrowed. -both blood cultures are negative. Follow-up blood tests and initiate plan to have home IV antibiotics. 2. Type 2 Diabetes on insulin -continue insulin with sliding scale, check achs -continue patient's regular diabetes medication 3. HTN -continue HCTZ CODE: Full Proxy: Saranya Kaur DVT Prophylaxis: Not needed due to mobility Time Spent With Patient Critical Care time: I spent a total of [] minutes of critical care time on this patient's care today; this time is exclusive of procedural time.
[2022-09-11] MEDS: INSULIN LISPRO 100 UNIT/ML 3ML VIAL SUBCUT ×2 (12:50→17:47)
[2022-09-11] MEDS: cefTRIAXone 2,000 MG in SODIUM CHLORIDE 0.9% 100 ML 200 MG IV (15:39)
[2022-09-11] MEDS: METFORMIN HCL 500 MG TABLET 1000 MG PO (17:46)
[2022-09-11] MEDS: SITAGLIPTIN 50 MG TABLET PO (17:47)
--- NOTE | 2022-09-11 23:35 | DI.RAD.S_ITS ---
PROCEDURE: XR CHEST FOR PICC 1V INDICATIONS: verification of PICC line placement COMPARISON: [facility], CR, XR CHEST 2V, 09/10/2022, 13:10. FINDINGS: PICC was placed by the intravenous therapy team from the right side. Fluoroscopic spot film demonstrates the tip of PICC projecting to the area of SVC. IMPRESSION: Tip of PICC projects to the area of SVC. Dictated by: Caden Newell M.D. on 09/12/2022 at 0:03 Approved by: Caden Newell M.D. on 09/12/2022 at 0:04
[2022-09-12] VITALS: BP 144/77; PULSE 89; RESP 18; TEMP 36.9; O2SAT 95
[2022-09-12 01:07] LABS: Vancomycin Trough 8.6 ug/mL (10-20)
[2022-09-12] MEDS: VANCOMYCIN 1,250 MG/250 ML PIGGYBACK 250 MG IV (01:39)
[2022-09-12] MEDS: VANCOMYCIN TROUGH 1 REQUEST MISC (01:39)
--- NOTE | 2022-09-12 03:10 | PC.NURSE ---
Pt is AxOx4, independent and cooperative. VSS, pt denies pain. Pt got PICC line placed around midnight and Vanco trough was drawn. it is low 8.7. Pt recieved IV Vanco around 0100. BG-160 at bedtime so pt recieved his 80 units of Glargine and some snack. Otherwise, pt slept well. No other changes.
[2022-09-12 04:30] LABS: Add Manual Diff / Slide Review NO; Basophils Absolute Auto 200 /uL (0-100); Basophils Percent Auto 1.6 % (0-2); Eosinophils Absolute Auto 400 /uL (0-450); Eosinophils Percent Auto 2.9 % (2-4); Hematocrit 43.8 % (41-53); Hemoglobin 14.6 g/dL (13.5-17.5); Lymphocytes Absolute Auto 3000 /uL (1100-4500); Mean Corpuscular HGB Conc 33.3 % (30-36); Mean Corpuscular Hemoglobin 29.6 PG (26-34); Mean Corpuscular Volume 88.8 fL (80-100); Monocytes Absolute Auto 1000 /uL (0-900); Monocytes Percent Auto 7.8 % (3-14); Neutrophils Absolute Auto 7900 /uL (1500-7000); Neutrophils Percent Auto 63.7 % (50-75); Platelet Count 245 X10^3/uL (150-400); Red Blood Cell Count 4.93 X10^6/uL (4.5-5.9); Red Cell Distribution Width 15.4 % (11.6-14.8); White Blood Cell Count 12.4 X10^3/uL (4.5-11.0)
[2022-09-12 04:44] LABS: Alanine Aminotransferase 58 IU/L (<50); Albumin 3.9 g/dL (3.5-5.0); Albumin Globulin Ratio 1.3 (1.0-2.8); Alkaline Phosphatase 57 U/L (38-126); Aspartate Aminotransferase 44 IU/L (17-59); BUN Creatinine Ratio 19.4 (6-22); Bilirubin Total 0.5 mg/dL (0.2-1.3); Blood Urea Nitrogen 19 mg/dL (9-20); Calcium 8.9 mg/dL (8.4-10.2); Carbon Dioxide 29 mmol/L (22-32); Chloride 95 mmol/L (98-107); Estimated Glomerular Filt Rate > 60 mL/min (>60); Glucose 144 mg/dL (70-100); Sodium 134 mmol/L (137-145); Total Protein 6.9 g/dL (6.3-8.2)
[2022-09-12 05:02] LABS: HEMOLYSIS 74 (0-50); Potassium 4.6 mmol/L (3.4-5.1)
[2022-09-12 05:21] VITALS: BP 148/73; PULSE 79; RESP 18; TEMP 37; O2SAT 97
[2022-09-12 08:00] VITALS: BP 156/79; PULSE 78; RESP 18; TEMP 35.7; O2SAT 96; O2SAT 97
[2022-09-12] MEDS: ATORVASTATIN 20 MG TABLET 40 MG PO (09:11)
[2022-09-12] MEDS: FUROSEMIDE 20 MG TABLET PO (09:11)
[2022-09-12] MEDS: hydroCHLOROthiazide 25 MG TABLET PO (09:11)
[2022-09-12] MEDS: PANTOPRAZOLE DR 20 MG TABLET PO (09:11)
[2022-09-12] MEDS: lisinopriL 5 MG TABLET PO (09:11)
[2022-09-12] MEDS: INSULIN GLARGINE 100 UNIT/ML 3ML PEN 80 UNIT SUBCUT (09:12)
[2022-09-12] MEDS: ALBUTEROL 2.5 MG/3 ML NEB (ADULT) INH (09:39)
[2022-09-12] MEDS: BUDESONIDE 0.5 MG/2 ML NEB INH (09:39)
--- NOTE | 2022-09-12 12:08 | PM.PN.1 ---
Subjective Subjective Interval history: Dose clarification for home infusion of IV antibiotics. Exam Vital Signs (past 8 hours): - 09/12/22 05:21 09/12/22 08:00 09/12/22 08:00 Temperature 98.6 F 96.2 F L Pulse Rate 79 78 Respiratory Rate 18 18 Blood Pressure 148/73 H 156/79 H Pulse Oximetry 97 97 Oxygen Delivery Method Room Air Oxygen Flow Rate 0 0 09/12/22 08:00 Temperature Pulse Rate Respiratory Rate Blood Pressure Pulse Oximetry 96 Oxygen Delivery Method Room Air Oxygen Flow Rate Oxygen Delivery Method Room Air Oxygen Flow Rate 0 Objective Labs Result Diagrams: 09/12/22 04:20 09/12/22 04:20 Labs: Laboratory Results - last 24 hr 09/12/22 09/12/22 09/12/22 00:35 04:20 04:20 WBC 12.4 H RBC 4.93 Hgb 14.6 Hct 43.8 MCV 88.8 MCH 29.6 MCHC 33.3 RDW 15.4 H Plt Count 245 Neut % (Auto) 63.7 Lymph % (Auto) 24.0 L Walker % (Auto) 7.8 Eos % (Auto) 2.9 Baso % (Auto) 1.6 Neut # (Auto) 7900 H Lymph # (Auto) 3000 Walker # (Auto) 1000 H Eos # (Auto) 400 Baso # (Auto) 200 H Sodium 134 L Potassium 4.6 Chloride 95 L Carbon Dioxide 29 BUN 19 Creatinine 0.98 Estimated GFR > 60 BUN/Creatinine Ratio 19.4 Glucose 144 H Calcium 8.9 Total Bilirubin 0.5 AST 44 ALT 58 H Alkaline Phosphatase 57 C-Reactive Protein 1.0 Total Protein 6.9 Albumin 3.9 Globulin 3.0 Albumin/Globulin Ratio 1.3 Procalcitonin 0.10 Vancomycin Trough 8.6 L PFSH Medical History (Updated 09/11/22 @ 07:47 by Anayeli Nye RN) Hypertension Obstructive sleep apnea on CPAP Social History household members: family Smoking Status: Never smoker alcohol intake: current Assessment & Plan Assessment & Plan narrative: IV antibiotics are as follows: To commence at home on September 13/2022 1) vancomycin 2 g IV at 8:00 a.m. and 8:00 p.m. daily until midnight on October 22, 2022 2) ceftriaxone 2 g IV daily at 10:00 a.m. until midnight on October 22, 2022 Time Spent With Patient Critical Care time: I spent a total of [] minutes of critical care time on this patient's care today; this time is exclusive of procedural time.
[2022-09-12 12:24] VITALS: BP 125/74; PULSE 87; RESP 18; TEMP 36.2; O2SAT 95
[2022-09-12] MEDS: VANCOMYCIN 2,000 MG/400 ML PIGGYBACK 200 MG IV (12:34)
[2022-09-12] MEDS: INSULIN LISPRO 100 UNIT/ML 3ML VIAL SUBCUT (12:35)
--- NOTE | 2022-09-12 14:05 | CM.DPNOTE ---
Discharge Planning Note: Sent today's progress note with medication instructions, PICC line placement record and CXR to [facility], who are asking for times to be adjusted, which this DCP relayed to nurse Guadalupe today. [facility] is asking for us to give the two antibiotic doses this afternoon and they will open case at 9:30 tomorrow morning. Kalpesh has called the patient and let him know the particulars. Patient verbalizes understanding. Plan: Discharge this afternoon after IV antibiotics per MD clearance. Discharging home. Leigh Cavazos RN/DCP
[2022-09-12] MEDS: cefTRIAXone 2,000 MG in SODIUM CHLORIDE 0.9% 100 ML 200 MG IV (15:03)
--- NOTE | 2022-09-12 15:12 | P.DS_ITS ---
History of Present Illness History of Present Illness Chief complaint: sent by [facility] infection lt foot big toe Discharge Providers Provider Date of admission: 09/10/22 14:26 Discharge Date: 09/12/22 Primary care physician: Ngoc Silverman DO Consults: Dr. Glaser orthopedic surgeon. Discharge provider: Sun Guevara MD Summary Hospital Course Discharge Diagnosis: Most responsible diagnosis for hospital stay length of stay: Osteomyelitis left foot. Pre- Admit diagnoses: Osteomyelitis left foot Cellulitis left foot Ischemic tissues left foot Compromised blood supply to both lower extremities Charcot arthropathy the of feet Type 2 diabetes insulin dependent Leukocytosis Elevated ESR Elevated liver enzymes Post admit diagnoses: None Secondary diagnoses: Reactive airway disease Seasonal allergies GERD Hypertension Hospital Course: Mr. Kaur is a 61M with PMH DM, HTN, PETERSON who presents for concern for osteomyelitis of left foot. Patient was started 3 weeks ago on antibiotics for a bronchitis. He then noted he began having swollen and erythematous left foot toes. He was continued on antibiotics for this by his PCP. Because of concern for erythematous left foot toes, he did get an MRI of his foot on the week prior to presentation which showed marked soft tissue swelling over dorsum of foot with no abscess. Marrow edema of 1st and 2nd metatarsal shafts also note that was concerning for osteomyelitis. He was referred to the hospital for this finding. Osteomyelitis and Charcot foot can have some similarities.? Orthopedic consult favored Charcot foot. However due to the abrupt decrease in white blood count with antibiotic treatment, the possibility of osteomyelitis was of a concern.? There is for the patient was initiated on 6 weeks of IV antibiotics. Antibiotics were vancomycin and ceftriaxone. Once it was established for outpatient infusion of IV antibiotics to due until October 22, 2022 at midnight with the ceftriaxone 2 g IV daily and vancomycin 2 g IV q.12h, the patient was discharged. Status at Discharge Cognitive/behavioral status at discharge: at baseline, oriented Functional status at discharge: independent ambulation Overall status at discharge: patient is progressing back to baseline Time Spent with Patient Time spent: Greater than 30 minutes Exam Vital Signs (past 8 hours): - 09/12/22 08:00 09/12/22 08:00 09/12/22 08:00 Temperature 96.2 F L Pulse Rate 78 Respiratory Rate 18 Blood Pressure 156/79 H Pulse Oximetry 97 96 Oxygen Delivery Method Room Air Room Air Oxygen Flow Rate 0 10/19/22 12:24 Temperature 97.1 F L Pulse Rate 87 Respiratory Rate 18 Blood Pressure 125/74 Pulse Oximetry 95 Oxygen Delivery Method Oxygen Flow Rate 0 Oxygen Delivery Method Room Air Oxygen Flow Rate 0 Narrative Exam Narrative: GEN: no acute distress HEENT: moist mucous membranes, PERRL NECK: trachea midline, no JVD CV: regular rate and rhythm, no murmurs PULM: clear bilaterally, no wheezes, rhonchi, rales ABD: soft, nontender, nondistended, no organomegaly EXTREMITIES: Left foot with swelling and erythema distally. NEURO: awake, alert, oriented, no focal deficits Objective Labs Result Diagrams: 09/12/22 04:20 09/12/22 04:20 Labs: Laboratory Results - last 24 hr 09/12/22 09/12/22 09/12/22 00:35 04:20 04:20 WBC 12.4 H RBC 4.93 Hgb 14.6 Hct 43.8 MCV 88.8 MCH 29.6 MCHC 33.3 RDW 15.4 H Plt Count 245 Neut % (Auto) 63.7 Lymph % (Auto) 24.0 L Ch[place]ot % (Auto) 7.8 Eos % (Auto) 2.9 Baso % (Auto) 1.6 Neut # (Auto) 7900 H Lymph # (Auto) 3000 [place] # (Auto) 1000 H Eos # (Auto) 400 Baso # (Auto) 200 H Sodium 134 L Potassium 4.6 Chloride 95 L Carbon Dioxide 29 BUN 19 Creatinine 0.98 Estimated GFR > 60 BUN/Creatinine Ratio 19.4 Glucose 144 H Calcium 8.9 Total Bilirubin 0.5 AST 44 ALT 58 H Alkaline Phosphatase 57 C-Reactive Protein 1.0 Total Protein 6.9 Albumin 3.9 Globulin 3.0 Albumin/Globulin Ratio 1.3 Procalcitonin 0.10 Vancomycin Trough 8.6 L [facility] Medical History (Updated 09/11/22 @ 07:47 by Anayeli Nye RN) Hypertension Obstructive sleep apnea on CPAP Social History household members: family Smoking Status: Never smoker alcohol intake: current Discharge Plan Discharge Plan Patient Disposition: Home Provider Discharge Comment: Flow although lisinopril 5 mg daily is not listed on the discharge prescriptions to be re-initiated at home, the patient should take this on a daily basis. Discharge orders & Medications Prescriptions: Continued benzonatate [Tessalon Perles] 100 mg capsule 100 mg PO QID PRN (Reason: cough) Qty: 30 0RF hydrochlorothiazide 25 mg tablet 1 tab PO DAILY loratadine 10 mg tablet 1 tab PO DAILY insulin aspart U-100 100 unit/mL insulin pen 26 units subcut BID sitagliptin-metformin 50-1,000 mg tablet, ER multiphase 24 hr 1 tab PO QPM insulin glargine U-300 conc 300 unit/mL (1.5 mL) insulin pen 80 units subcut BID atorvastatin 40 mg tablet 40 mg PO DAILY furosemide 20 mg tablet 20 mg PO DAILY fluticasone propion-salmeterol [Advair Diskus] 500-50 mcg/dose blister with device 1 ea INHALATION BID fluticasone propionate 50 mcg/actuation spray,suspension 1 spray INTRANASAL BID omeprazole 20 mg capsule,delayed release(DR/EC) 20 mg PO BID albuterol sulfate [ProAir HFA] 90 mcg/actuation HFA aerosol inhaler 1 inh INHALATION BID codeine-guaifenesin 10-100 mg/5 mL liquid 5 ml PO BEDTIME PRN (Reason: Cough) hydrocodone-acetaminophen 5-325 mg tablet 1 tab PO BEDTIME PRN (Reason: Pain (Scale Score 4-6)) Discontinued doxycycline hyclate 100 mg tablet 100 mg PO BID amoxicillin-pot clavulanate 500-125 mg tablet 1 tab PO BID Follow up/Referrals: Ngoc Silverman DO [Primary Care Provider] - () Skin/Wound/Dressing Care Dressing: Cover dressing with plastic when showering, don't let water hit it directly. Remove plastic and pat dry. Other wound treatment: Your dressing will be changed by [facility]. It should be done tomorrow. 09/13/22 Visit Report/Discharge Packet Instructions: DI for Cellulitis -- Adult, DI for Osteomyelitis, Peripherally Inserted Central Catheter Discharge Data Primary Care Provider: Ngoc Silverman
--- NOTE | 2022-09-12 18:07 | PC.NURSE ---
Discharge: Pt feels ready to d/c to home. Received IV antibotics prior to leaving. IV Antibiotic orders were faxed. They will see patient tomorrow. PIC line in place and flushed per protocol. [facility]fusion will start to provide line care. Pt denies any problems. reviewed d/c packet and questions answers, Pt drove self home. he is steady and has no difficulty at this time.
== END 2022-09-12 16:56 | disposition home or self-care (01) | DRG 540 ==
LOC: ED 13:33 → AC 14:27
PROVIDERS: Emergency Medicine; Neuromusculoskeletal Medicine, Sports Medicine; Admitting Provider Internal Medicine; Emergency Provider Nurse Practitioner Critical Care Medicine; PCP Family Medicine; Referring Provider Nurse Practitioner Critical Care Medicine; Visit Provider Internal Medicine
DX: M86.8X7 Other osteomyelitis, ankle and foot (principal); E11.52 Type 2 diabetes mellitus with diabetic peripheral angiopathy with gangrene; L03.116 Cellulitis of left lower limb; I96 Gangrene, not elsewhere classified; E11.610 Type 2 diabetes mellitus with diabetic neuropathic arthropathy; I10 Essential (primary) hypertension; J45.909 Unspecified asthma, uncomplicated; Z79.4 Long term (current) use of insulin; Z20.822 Contact with and (suspected) exposure to COVID-19; Z79.84 Long term (current) use of oral hypoglycemic drugs
CPT/HCPCS: 36415; 71046; 73630; 75635; 80048; 80053; 80202; 82962; 83036; 84145; 84550; 85025; 85651; 86140; 87040; 87635; 94640; 94760; 96365; 96366; 99284; C9803; J0696; J1650; J1815; J7613; Q9967